=== PATIENT | female | born 1970 | race Caucasian/White ===

== ENCOUNTER 2019-01-09 16:11 | Observation (INO) | payer OTHER ==
[2019-01-09 16:53] LABS: Basophils # (A) 0.1 k/uL (0-0.2); Basophils % (A) 2 %; Eosinophils # (A) 0.3 k/uL (0-0.7); Eosinophils % (A) 5 %; HCT 42.2 % (34.0-46.0); Lymphocytes # (A) 1.5 k/uL (1.0-4.8); Lymphocytes % (A) 27 %; MCH 32.4 pg (25.0-35.0); MCHC 35.6 g/dL (31.0-37.0); MCV 90.9 fL (80.0-100.0); Mean Platelet Volume 6.4; Monocytes # (A) 0.2 k/uL (0-1.0); Monocytes % (A) 4 %; Neutrophils # (A) 3.3 k/uL (1.3-7.7); Neutrophils % (A) 60 %; Platelet Count 231 k/uL (150-450); RBC 4.64 m/uL (3.80-5.40); RDW 13.9 % (11.5-15.5); WBC 5.5 k/uL (3.8-10.6)
[2019-01-09 17:03] LABS: Partial Thromboplastin Time 26.1 sec (22.0-30.0)
[2019-01-09 17:04] LABS: ALT 38 U/L (9-52); AST 24 U/L (14-36); Albumin 4.5 g/dL (3.5-5.0); Alkaline Phosphatase 59 U/L (38-126); Anion Gap 8 mmol/L; Blood Urea Nitrogen 12 mg/dL (7-17); Calcium 9.3 mg/dL (8.4-10.2); Carbon Dioxide 29 mmol/L (22-30); Chloride 103 mmol/L (98-107); Glucose 128 mg/dL (74-99); Magnesium 1.8 mg/dL (1.6-2.3); Potassium 4.1 mmol/L (3.5-5.1); Sodium 140 mmol/L (137-145); Total Bilirubin 0.9 mg/dL (0.2-1.3); Total Protein 7.6 g/dL (6.3-8.2)
[2019-01-09 17:09] LABS: Creatine Kinase 58 U/L (30-135)
--- NOTE | 2019-01-09 17:12 | ED ---
General Adult HPI - General Chief complaint: Chest Pain Stated complaint: Chest Pain Time Seen by Provider: 01/09/19 16:52 Source: patient Mode of arrival: ambulatory Limitations: no limitations - History of Present Illness Initial comments: Dictation was produced using [employer] dictation software. please excuse any grammatical, word or spelling errors. Chief Complaint: 48-year-old female presents with multiple complaints including chest pain, elevated blood pressure History of Present Illness: Patient is a 48-year-old female presents with multiple complaints. She states that her symptoms began 5 days ago. She states that she noted her blood pressure was slightly higher than usual. States that ever since that she hasn't felt quite normal however she wasn't able to give me detailed symptoms. Symptoms persisted until this morning when she was in the kitchen she felt as though she had an episode of mild chest tightness with radiation to the back. States that she was slightly diaphoretic. Patient has history of achalasia for which she gets multiple esophageal dilatations on a regular basis. She denies any difficulties with swallowing. Patient does take lisinopril for her blood pressure. She called her primary care doctor but her blood pressure to take an extra dose. Denies any cough. No dyspnea denies any neuro deficits. The ROS documented in this emergency department record has been reviewed and confirmed by me. Those systems with pertinent positive or negative responses have been documented in the HPI. All other systems are other negative and/or noncontributory. PHYSICAL EXAM: General Impression: Alert and oriented x3, not in acute distress HEENT: Normocephalic atraumatic, extra-ocular movements intact, pupils equal and reactive to light bilaterally, mucous membranes moist. Cardiovascular: Heart regular rate and rhythm, S1&S2 audible, no murmurs, rubs or gallops Chest: Lungs clear to auscultation bilaterally, no rhonchi, no wheeze, no rales Abdomen: Bowel sounds present, abdomen soft, non-tender, non-distended, no organomegaly Musculoskeletal: Pulses present and equal in all extremities, no peripheral edema Motor: Power 5/5 bilaterally, no focal deficits noted Neurological: CN II-XII grossly intact, no focal motor or sensory deficits noted Skin: Intact with no visualized rashes Psych: Normal affect and mood ED course: 48-year-old female presents with multiple complaints. Vital signs upon arrival shows blood pressure 170/125, rest of vital signs within acceptable limits.Laboratory evaluation obtained. CBC is unremarkable. Coag panel unremarkable. D-dimer is negative. Metabolic panel and cardiac enzymes are negative. Chest x-ray shows no acute processes. Patient's clinical presentation is consistent with atypical chest pain with typical features. There is also concern that patient's symptoms could be secondary to esophageal spasms given history of achalasia. Patient be admitted observation for scheduled troponins and cardiology and GI consultation. EKG interpretation: Ventricular rate 76, sinus rhythm, NC interval 120, care is 80, QTc 438. No NC prolongation, no QTC prolongation, no ST or T-wave changes noted. Overall, this EKG is unremarkable - Related Data Home Medications Medication Instructions Recorded Confirmed [id number] 1 tab PO Q4-6H PRN 01/09/19 01/09/19 [Excedrin] Lisinopril [Prinivil] 10 mg PO DAILY 01/09/19 01/09/19 Allergies Allergy/AdvReac Type Severity Reaction Status Date / Time No Known Allergies Allergy Verified 01/09/19 17:04 Review of Systems ROS Statement: Those systems with pertinent positive or pertinent negative responses have been documented in the HPI. ROS Other: All systems not noted in ROS Statement are negative. Past Medical History Past Medical History: Hypertension History of Any Multi-Drug Resistant Organisms: MRSA Date of last positivie culture/infection: 2016 MDRO Source:: [place] Past Surgical History: Hernia Repair Past Psychological History: Depression Smoking Status: Never smoker Past Alcohol Use History: Occasional Past Drug Use History: None Reported General Exam Limitations: no limitations Course Vital Signs 01/09/19 01/09/19 16:22 18:56 Temperature 97.8 F Pulse Rate 81 69 Respiratory 16 19 Rate Blood Pressure 170/125 130/87 O2 Sat by Pulse 100 100 Oximetry Medical Decision Making - Lab Data Result diagrams: 01/09/19 16:41 01/09/19 16:41 Lab Results 01/09/19 01/09/19 01/09/19 Range/Units 16:41 16:41 16:41 WBC 5.5 (3.8-10.6) k/uL RBC 4.64 (3.80-5.40) m/uL Hgb 15.0 (11.4-16.0) gm/dL Hct 42.2 (34.0-46.0) % MCV 90.9 (80.0-100.0) fL MCH 32.4 (25.0-35.0) pg MCHC 35.6 (31.0-37.0) g/dL RDW 13.9 (11.5-15.5) % Plt Count 231 (150-450) k/uL Neutrophils % 60 % Lymphocytes % 27 % Monocytes % 4 % Eosinophils % 5 % Basophils % 2 % Neutrophils # 3.3 (1.3-7.7) k/uL Lymphocytes # 1.5 (1.0-4.8) k/uL Monocytes # 0.2 (0-1.0) k/uL Eosinophils # 0.3 (0-0.7) k/uL Basophils # 0.1 (0-0.2) k/uL PT (9.0-12.0) sec INR (<1.2) APTT (22.0-30.0) sec D-Dimer (<0.60) mg/L FEU Sodium 140 (137-145) mmol/L Potassium 4.1 (3.5-5.1) mmol/L Chloride 103 (98-107) mmol/L Carbon Dioxide 29 (22-30) mmol/L Anion Gap 8 mmol/L BUN 12 (7-17) mg/dL Creatinine 0.69 (0.52-1.04) mg/dL Est GFR (CKD-EPI)AfAm >90 (>60 ml/min/1.73 sqM) Est GFR (CKD-EPI)NonAf >90 (>60 ml/min/1.73 sqM) Glucose 128 H (74-99) mg/dL Calcium 9.3 (8.4-10.2) mg/dL Magnesium 1.8 (1.6-2.3) mg/dL Total Bilirubin 0.9 (0.2-1.3) mg/dL AST 24 (14-36) U/L ALT 38 (9-52) U/L Alkaline Phosphatase 59 (38-126) U/L Total Creatine Kinase 58 (30-135) U/L CK-MB (CK-2) 1.4 (0.0-2.4) ng/mL CK-MB (CK-2) Rel Index 2.4 Troponin I <0.012 (0.000-0.034) ng/mL NT-Pro-B Natriuret Pep pg/mL Total Protein 7.6 (6.3-8.2) g/dL Albumin 4.5 (3.5-5.0) g/dL 01/09/19 01/09/19 01/09/19 Range/Units 16:41 16:41 16:41 WBC (3.8-10.6) k/uL RBC (3.80-5.40) m/uL Hgb (11.4-16.0) gm/dL Hct (34.0-46.0) % MCV (80.0-100.0) fL MCH (25.0-35.0) pg MCHC (31.0-37.0) g/dL RDW (11.5-15.5) % Plt Count (150-450) k/uL Neutrophils % % Lymphocytes % % Monocytes % % Eosinophils % % Basophils % % Neutrophils # (1.3-7.7) k/uL Lymphocytes # (1.0-4.8) k/uL Monocytes # (0-1.0) k/uL Eosinophils # (0-0.7) k/uL Basophils # (0-0.2) k/uL PT 11.0 11.0 (9.0-12.0) sec INR 1.0 1.0 (<1.2) APTT 26.1 26.6 (22.0-30.0) sec D-Dimer 0.34 (<0.60) mg/L FEU Sodium (137-145) mmol/L Potassium (3.5-5.1) mmol/L Chloride (98-107) mmol/L Carbon Dioxide (22-30) mmol/L Anion Gap mmol/L BUN (7-17) mg/dL Creatinine (0.52-1.04) mg/dL Est GFR (CKD-EPI)AfAm (>60 ml/min/1.73 sqM) Est GFR (CKD-EPI)NonAf (>60 ml/min/1.73 sqM) Glucose (74-99) mg/dL Calcium (8.4-10.2) mg/dL Magnesium (1.6-2.3) mg/dL Total Bilirubin (0.2-1.3) mg/dL AST (14-36) U/L ALT (9-52) U/L Alkaline Phosphatase (38-126) U/L Total Creatine Kinase (30-135) U/L CK-MB (CK-2) (0.0-2.4) ng/mL CK-MB (CK-2) Rel Index Troponin I (0.000-0.034) ng/mL NT-Pro-B Natriuret Pep 80 pg/mL Total Protein (6.3-8.2) g/dL Albumin (3.5-5.0) g/dL Disposition Clinical Impression: Chest pain Disposition: ADMITTED IP TO THIS HOSP Condition: Fair Referrals: Hank Lemus MD [Primary Care Provider] - 1-2 days Decision Time: 19:42
[2019-01-09 17:22] LABS: Creatine Kinase MB 1.4 ng/mL (0.0-2.4); Troponin I <0.012 ng/mL (0.000-0.034)
[2019-01-09 17:32] LABS: D-Dimer 0.34 mg/L FEU (<0.60); Partial Thromboplastin Time 26.6 sec (22.0-30.0)
--- NOTE | 2019-01-09 17:39 | XR ---
EXAMINATION TYPE: XR chest 2V DATE OF EXAM: 01/09/2019 COMPARISON: NONE HISTORY: Chest pain TECHNIQUE: Frontal and lateral views of the chest are obtained. FINDINGS: Heart and mediastinum are normal. Lungs are clear. Diaphragm is normal. Bony thorax appear s normal. IMPRESSION: Normal chest.
[2019-01-09] MEDS ORDERED: LABETALOL SYRINGE 5 MG/ML IVP STA (18:38)
[2019-01-09] MEDS ORDERED: ASPIRIN 81 MG PO STA (19:43)
[2019-01-09] MEDS ORDERED: NITROGLYCERIN SL TABS 0.4 MG TAB SUBLINGUAL PRN (19:43)
[2019-01-09 23:47] LABS: Creatine Kinase 47 U/L (30-135)
[2019-01-09 23:59] LABS: Creatine Kinase MB 1.2 ng/mL (0.0-2.4); Troponin I <0.012 ng/mL (0.000-0.034)
[2019-01-10 05:38] LABS: Cholesterol 151 mg/dL (<200); HDL Cholesterol 79 mg/dL (40-60); LDL Cholesterol,Calculated 54 mg/dL (0-99); Triglycerides 90 mg/dL (<150)
[2019-01-10 05:54] LABS: Creatine Kinase 41 U/L (30-135)
[2019-01-10 06:07] LABS: Troponin I <0.012 ng/mL (0.000-0.034)
[2019-01-10] MEDS ORDERED: ASPIRIN 325 MG TAB PO SCH (09:00)
[2019-01-10] MEDS ORDERED: LISINOPRIL 10 MG TAB PO SCH (09:45)
[2019-01-10 10:49] VITALS: BMI 19.1
--- NOTE | 2019-01-10 11:04 | P.CONS ---
History of Present Illness - Reason for Consult Consult date: 01/10/19 Chest pain rule out esophageal spasm Requesting physician: Pranav E Sheet - Chief Complaint Chest pain - History of Present Illness 49-year-old female patient of Dr. Mendoza with a past medical history of esophageal stricture disease that dates back 10 years ago with previous upper endoscopies dilations; last EGD dilation approximately 5 years ago, hypertension , depression admitted with upper chest pain possible esophageal spasms with elevated blood pressures 170/125. Consultation requested for possible esophageal spasm. Patient states in a daily basis she has issues with solid foods being stuck but somehow clears and without emesis. No weight loss. Denies hematemesis hematochezia melena. Nitroglycerin worsened her chest discomfort. She is scheduled for stress test echocardiogram today. No PPI therapy prior to admission. Denies dyspepsia or reflux indigestion. White count 5.5. Hemoglobin 15. INR 1.0. D-dimer is 0.34. Troponin 3 less than 0.012. Chest x-ray normal. Review of Systems Constitutional: Denies fever, chills, sweats, weight gain, or loss. HEENT: Negative for migraines, blurred vision or loss, earaches, drainage, tinnitus, oral mucosal lesions, dysphagia, or odynophagia. CARDIAC: Admitted with chest pain denies pain, arrhythmias, or palpitation. RESPIRATORY: Negative for shortness of breath, hemoptysis, cough, or sputum production. GI: See HPI for pertinent findings. : Negative for hematuria, urgency, frequency, polyuria, or dysuria. GYNc: Denies possibility of . Negative vaginal discharge. MUSCULOSKELETAL: Negative for muscle aches, swelling, arthritis, and arthralgias. NEUROLOGIC: Negative for stroke or TIA. ENDOCRINE: Negative for thyroid problems. SKIN: Negative for rash or itching. PSYCHIATRIC: Negative history for depression and anxiety Past Medical History Past Medical History: Hypertension History of Any Multi-Drug Resistant Organisms: MRSA Year Discovered:: 2017 MDRO Source:: [place] Past Surgical History: Hernia Repair Past Psychological History: Depression Smoking Status: Never smoker Past Alcohol Use History: Occasional Past Drug Use History: None Reported - Past Family History Father Family Medical History: AFIB Mother Family Medical History: AFIB Medications and Allergies Home Medications Medication Instructions Recorded Confirmed Type Lvrqook-Uyep-Zpvq [id number] 1 tab PO Q4-6H PRN 01/09/19 01/09/19 History [Excedrin] Lisinopril [Prinivil] 10 mg PO DAILY 01/09/19 01/09/19 History Allergies Allergy/AdvReac Type Severity Reaction Status Date / Time No Known Allergies Allergy Verified 01/09/19 17:04 Physical Exam Vitals: Vital Signs Temp Pulse Resp BP Pulse Ox 01/10/19 06:07 125/74 01/10/19 02:00 17 01/09/19 22:24 66 18 126/65 99 01/09/19 21:42 75 18 130/72 99 01/09/19 18:56 69 19 130/87 100 01/09/19 16:22 97.8 F 81 16 170/125 100 Intake and Output 01/09/19 01/10/19 01/10/19 22:59 06:59 14:59 Other: Weight 52.163 kg General appearance: The patient is alert, oriented, in no acute distress. HET: Head is normocephalic and atraumatic. Pupils are equal and reactive. Oropharynx is clear without lesions. Neck: Supple without lymphadenopathy. Trachea midline. Heart: S1 S2. Regular rate and rhythm. Lungs: No crackles or wheezes are heard. Abdomen: Soft, nontender, nondistended with bowel sounds. No peritoneal signs. No palpable organomegaly or masses. Extremities: Normal skin color and turgor. No cyanosis, rash, ulceration, clubbing, or edema. Radial and pedal pulses are 2/4 bilaterally. Neurological: No focal deficits. Strength and sensation are grossly intact. Results CBC & Chem 7: 01/09/19 16:41 01/09/19 16:41 Labs: Abnormal Lab Results - Last 24 Hours (Table) 01/09/19 01/10/19 Range/Units 16:41 04:54 Glucose 128 H (74-99) mg/dL HDL Cholesterol 79 H (40-60) mg/dL Chest x-ray: report reviewed (Dr. Lazo) Assessment and Plan (1) Chest pain Narrative/Plan: 49-year-old female admitted with upper chest pain not relieved with nitroglycerin with underlying history of hypertension and esophageal stricture disease requiring previous dilations last EGD approximately 5 years ago. Possible GERD esophageal spasms underlying cardiac pathology cannot be excluded. Current Visit: Yes Status: Acute Code(s): R07.9 - CHEST PAIN, UNSPECIFIED SNOMED Code(s): 63769022 (2) Hypertension Current Visit: Yes Status: Acute Code(s): I10 - ESSENTIAL (PRIMARY) HYPERTENSION SNOMED Code(s): 97980012 (3) History of esophageal dilatation Current Visit: Yes Status: Acute Code(s): Z98.890 - OTHER SPECIFIED POSTPROCEDURAL STATES SNOMED Code(s): 845535769 Plan: 1. Protonix 40 mg daily. Cardiac echo stress test requested by cardiology. EGD was recommended timing will be based on clinical course. This can be pursued inpatient versus outpatient later this week if she obtains cardiac clearance later today. We'll review previous GI office/endoscopic records. We' ll follow closely with you. Thank you for this kind referral and the opportunity to participate in the care of your patient. This consultation was discussed with Dr. Lazo. The impression and plan of care have been directed as dictated.
[2019-01-10] MEDS ORDERED: LISINOPRIL 10 MG TAB PO STA (11:28)
--- NOTE | 2019-01-10 11:36 | P.CRDCN ---
History of Present Illness History of present illness: This is a pleasant 49-year-old female past medical history significant for hypertension, dysphagia and depression. She denies history of coronary artery disease, dyslipidemia or diabetes mellitus. She states both her parents had atrial fibrillation but no premature coronary artery disease. The patient's is here in consultation for symptoms of chest discomfort. She states she has been feeling generally unwell over the previous week or so she was diagnosed with a viral illness recently and was started on antibiotics. She checked her blood pressure at home on Thursday she states it was extremely high. She is very compliant with her lisinopril. Then yesterday she started feeling a very heavy pressure sensation in the midsternal region with radiation through to the back. There is no radiation to the arm, neck or jaw. She felt as thought the time she was mildly diaphoretic. There was no associated shortness of breath, dizziness, palpitations, nausea or vomiting. The discomfort was brief and resolved on its own. No specific aggravating or alleviating factors. She is seen and examined resting comfortably sitting up on the stretcher with her at the bedside. At the time of my exam she continues to have chest discomfort when she takes in a deep breath but otherwise no anginal symptoms. EKG reveals sinus mechanism with nonspecific ST abnormalities noted inferio- laterally. Chest x-ray negative for an acute cardiopulmonary process. Laboratory data reviewed, WBC 5.5, hemoglobin 15, platelets 231, d-dimer 0.34, sodium 140, potassium 4.1, creatinine 0.69, magnesium 1.8, cardiac enzymes negative 3, LDL 54 and HDL 79. Current cardiac medications include lisinopril 10 mg daily. At the time of my exam: CONSTITUTIONAL: Denies fever. Denies chills. EYES: Denies blurred vision. Denies vision changes. Denies eye pain. EARS, NOSE, MOUTH & THROAT: Denies headache. Denies sore throat. Denies ear pain. CARDIOVASCULAR: Complains of pleuritic chest pain. Denies shortness of breath. Denies orthopnea. Denies PND. Denies palpitations. RESPIRATORY: Denies cough. GASTROINTESTINAL: Denies abdominal pain. Denies diarrhea. Denies constipation. Denies nausea. Denies vomiting. MUSCULOSKELETAL: Denies myalgias. INTEGUMENTARY: Denies pruitis. Denies rash. NEUROLOGIC: Denies numbness. Denies tingling. Denies weakness. PSYCHIATRIC: Denies anxiety. Denies depression. ENDOCRINE: Denies fatigue. Denies weight change. Denies polydipsia. Denies polyurina. GENITOURINARY: Denies burning, hematuria or urgency with micturation. HEMATOLOGIC: Denies history of anemia. Denies bleeding. Blood pressure 153/88 heart rate 63 afebrile maintaining oxygen saturation on room air GENERAL: This is a 49-year-old female in no apparent distress at the time of my examination. HEENT: Head is atraumatic, normocephalic. Pupils are equal, round. Sclerae anicteric. Conjunctivae are clear. Mucous membranes of the mouth are moist. Neck is supple. There is no jugular venous distention. No carotid bruit is heard. LUNGS: Clear to auscultation no wheezes, rales or rhonchi. No chest wall tenderness is noted on palpation or with deep breathing. HEART: Regular rate and rhythm without murmurs, rubs or gallops. S1 and S2 heard. ABDOMEN: Soft, nontender. Bowel sounds are heard. No organomegaly noted. EXTREMITIES: No evidence of peripheral edema and no calf tenderness noted. VASCULAR: Radial and dorsalis pedis pulses palpated, no evidence of clubbing. NEUROLOGIC: Patient is awake, alert and oriented x3. ASSESSMENT Chest pain, atypical. An acute coronary event has been ruled out. Baseline EKG abnormalities of unknown etiology. Hypertension, uncontrolled History of esophageal stricture status post dilatation 5+ years ago Gastroesophageal reflux disease PLAN An acute coronary event has been ruled out. Baseline EKG abnormalities noted. Obtain 2-D echocardiogram and Doppler study to assess cardiac structure and function. Increase lisinopril to 20 mg daily. Perform stress echocardiogram to assess her stress induced cardiac ischemia. Stress test is abnormal we'll consider coronary angiography. If normal she is stable from a cardiac perspective. Ongoing management per GI for possible endoscopy. Thank you kindly for this consultation. Nurse Practitioner note has been reviewed, I agree with a documented findings and plan of care. Patient was seen and examined. Past Medical History Past Medical History: Hypertension Additional Past Medical History / Comment(s): Achalasia/dysphagia-watches what she eats and chews her pills. History of Any Multi-Drug Resistant Organisms: MRSA Date of last positivie culture/infection: 2016 MDRO Source:: [place] Past Surgical History: Hernia Repair Additional Past Surgical History / Comment(s): EGD with dilations, bilateral inguinal hernia repairs, colonoscopy. Past Anesthesia/Blood Transfusion Reactions: No Reported Reaction Additional Past Anesthesia/Blood Transfusion Reaction / Comment(s): Pt has clausterphobia. Past Psychological History: Depression Smoking Status: Never smoker Past Alcohol Use History: Occasional Past Drug Use History: None Reported - Past Family History Father Family Medical History: AFIB Mother Family Medical History: AFIB Medications and Allergies Home Medications Medication Instructions Recorded Confirmed Type Xzkhxck-Xjsa-Kztg [id number] 1 tab PO Q4-6H PRN 01/09/19 01/09/19 History [Excedrin] Lisinopril [Prinivil] 10 mg PO DAILY 01/09/19 01/09/19 History Allergies Allergy/AdvReac Type Severity Reaction Status Date / Time No Known Allergies Allergy Verified 01/09/19 17:04 Physical Exam Vitals: Vital Signs Temp Pulse Pulse Resp BP BP Pulse Ox 01/10/19 09:00 97.8 F 63 18 153/88 99 01/10/19 08:43 97.6 F 77 18 142/76 99 01/10/19 06:07 125/74 01/10/19 02:00 17 01/09/19 22:24 66 18 126/65 99 01/09/19 21:42 75 18 130/72 99 01/09/19 18:56 69 19 130/87 100 01/09/19 16:22 97.8 F 81 16 170/125 100 Intake and Output 01/09/19 01/10/19 01/10/19 22:59 06:59 14:59 Other: Weight 52.163 kg Results 01/09/19 16:41 01/09/19 16:41 Cardiac Enzymes 01/09/19 01/09/19 01/09/19 Range/Units 16:41 16:41 23:16 AST 24 (14-36) U/L CK-MB (CK-2) 1.4 1.2 (0.0-2.4) ng/mL Troponin I <0.012 <0.012 (0.000-0.034) ng/mL 01/10/19 Range/Units 04:54 AST (14-36) U/L CK-MB (CK-2) 1.0 (0.0-2.4) ng/mL Troponin I <0.012 (0.000-0.034) ng/mL Coagulation 01/09/19 01/09/19 Range/Units 16:41 16:41 PT 11.0 11.0 (9.0-12.0) sec APTT 26.1 26.6 (22.0-30.0) sec Lipids 01/10/19 Range/Units 04:54 Triglycerides 90 (<150) mg/dL Cholesterol 151 (<200) mg/dL HDL Cholesterol 79 H (40-60) mg/dL CBC 01/09/19 Range/Units 16:41 WBC 5.5 (3.8-10.6) k/uL RBC 4.64 (3.80-5.40) m/uL Hgb 15.0 (11.4-16.0) gm/dL Hct 42.2 (34.0-46.0) % Plt Count 231 (150-450) k/uL Comprehensive Metabolic Panel 01/09/19 Range/Units 16:41 Sodium 140 (137-145) mmol/L Potassium 4.1 (3.5-5.1) mmol/L Chloride 103 (98-107) mmol/L Carbon Dioxide 29 (22-30) mmol/L BUN 12 (7-17) mg/dL Creatinine 0.69 (0.52-1.04) mg/dL Glucose 128 H (74-99) mg/dL Calcium 9.3 (8.4-10.2) mg/dL AST 24 (14-36) U/L ALT 38 (9-52) U/L Alkaline Phosphatase 59 (38-126) U/L Total Protein 7.6 (6.3-8.2) g/dL Albumin 4.5 (3.5-5.0) g/dL Current Medications Generic Name Dose Route Start Last Admin Trade Name Freq PRN Reason Stop Dose Admin Aspirin 325 mg 01/10/19 09:00 Aspirin PO DAILY SELWYN Lisinopril 10 mg 01/10/19 09:45 Zestril PO DAILY SELWYN Lisinopril 20 mg 01/11/19 09:00 Zestril PO DAILY SELWYN Lisinopril 10 mg 01/10/19 11:25 Zestril PO 01/10/19 11:26 ONCE STA Nitroglycerin 0.4 mg 01/09/19 19:43 01/09/19 22:23 Nitrostat SUBLINGUAL 0.4 mg Q5M PRN Administration Chest Pain Intake and Output 01/09/19 01/10/19 01/10/19 22:59 06:59 14:59 Other: Weight 52.163 kg 01/09/19 16:41 01/09/19 16:41
--- NOTE | 2019-01-10 13:45 | ECHOF ---
Referral Reason:cp MEASUREMENTS -------- HEIGHT: 165.1 cm WEIGHT: 52.2 kg BP: IVSd: 1.1 cm (0.6 - 1.1) LVIDd: 3.8 cm (3.9 - 5.3) LVPWd: 0.8 cm (0.6 - 1.1) IVSs: 1.2 cm LVIDs: 2.4 cm LVPWs: 1.0 cm Ao Diam: 3.1 cm (2.0 - 3.7) AV Cusp: 1.5 cm (1.5 - 2.6) LA Diam: 2.8 cm (2.7 - 3.8) MV EXCURSION: 17.007 mm (> 18.000) MV EF SLOPE: 141 mm/s (70 - 150) EPSS: 1.8 cm MV E Woody: 0.65 m/s MV DecT: 348 ms MV A Woody: 0.52 m/s MV E/A Ratio: 1.25 RAP: 5.00 mmHg RVSP: 28.15 mmHg FINDINGS -------- Sinus rhythm. This was a technically good study. The left ventricular size is normal. Left ventricular wall thickness is normal. Overall left vent ricular systolic function is normal with, an EF between 55 - 60 %. The right ventricle is normal in size. The left atrium is normal in size. The right atrium is normal in size. The aortic valve is trileaflet, and appears structurally normal. No aortic stenosis or regurgitation. The mitral valve leaflets are mildly thickened. Mild mitral regurgitation is present. Mild tricuspid regurgitation present. The right ventricular systolic pressure, as measured by Doppl er, is 28.15mmHg. Pulmonic valve appears structurally normal. The aortic root size is normal. Normal inferior vena cava with normal inspiratory collapse consistent with estimated right atrial pre ssure of 5 mmHg. The pericardium is normal. CONCLUSIONS -------- 1. Sinus rhythm. 2. This was a technically good study. 3. The left ventricular size is normal. 4. Left ventricular wall thickness is normal. 5. Overall left ventricular systolic function is normal with, an EF between 55 - 60 %. 6. The right ventricle is normal in size. 7. The left atrium is normal in size. 8. The right atrium is normal in size. 9. The aortic valve is trileaflet, and appears structurally normal. No aortic stenosis or regurgitati on. 10. The mitral valve leaflets are mildly thickened. 11. Mild mitral regurgitation is present. 12. Mild tricuspid regurgitation present. 13. The right ventricular systolic pressure, as measured by Doppler, is 28.15mmHg. 14. Pulmonic valve appears structurally normal. 15. The aortic root size is normal. 16. Normal inferior vena cava with normal inspiratory collapse consistent with estimated right atrial pressure of 5 mmHg. 17. The pericardium is normal. CLAY ARTISAN: Tara Amaral RDCS
--- NOTE | 2019-01-10 16:35 | ECHOS ---
STRESS ECHOCARDIOGRAM DATE OF SERVICE: 01/10/2019 INDICATION: Chest pain. MEDICATIONS: Lisinopril. BASELINE HEART RATE: 67 BASELINE BLOOD PRESSURE: 163/103 MAXIMUM HEART RATE: 156 MAXIMUM BLOOD PRESSURE: 207/99 85% MPHR: 147 100% MPHR: 173 METS: 9.9 MAXIMUM STAGE REACHED: 3 TOTAL EXERCISE TIME: 8:15 CLINICAL INFORMATION: STRESS DATA: Pre-testing physical examination showed a heart rate of 67, pressure 163/103 mmHg. Baseline EKG showed sinus mechanism. The patient exercised on the treadmill using Mehdi protocol for a total of 8 minutes and 15 seconds and achieved 9.9 METS with max heart of 156, which is about 90% of maximum predicted heart rate. Maximum blood pressure was 207/99 mmHg. Clinically the patient did not have any symptoms of chest pain or chest discomfort during the testing or on recovery. The EKG showed about [address]-segment changes on recovery. ECHOCARDIOGRAM IMAGES: Echocardiogram images from parasternal long axis view, parasternal short axis view, apical 4-chamber and apical 2-chamber views were obtained as the baseline images, at the peak of the heart rate as well as on recovery. The echocardiogram images showed good augmentation in the left ventricular systolic function without any evidence of wall motion abnormalities concerning for ischemia. CONCLUSION: 1. Excellent exercise tolerance. 2. Mild EKG changes in response to exercise. 3. Normal echocardiogram in response to exercise. MMODL / IJN: [id number] /
[2019-01-10] MEDS ORDERED: PANTOPRAZOLE 40 MG TABLET PO STA (16:52)
[2019-01-10 20:01] VITALS: BP 131/85; PULSE 67; RESP 16; TEMP 98.3
--- NOTE | 2019-01-10 20:12 | US ---
EXAMINATION TYPE: US venous doppler duplex LE DATE OF EXAM: 01/10/2019 7:56 PM COMPARISON: NONE CLINICAL HISTORY: Rule out DVT. Chest pain and leg cramps. SIDE PERFORMED: Bilateral TECHNIQUE: The lower extremity deep venous system is examined utilizing real time linear array sonog angie with graded compression, doppler sonography and color-flow sonography. VESSELS IMAGED: External Iliac Vein (EIV) Common Femoral Vein Deep Femoral Vein Greater Saphenous Vein * Femoral Vein Popliteal Vein Small Saphenous Vein * Proximal Calf Veins (* superficial vessels) Right Leg: Negative for DVT Left Leg: Negative for DVT IMPRESSION: No evidence of deep venous thrombosis in both legs.
[2019-01-11] MEDS ORDERED: LISINOPRIL 20 MG TAB PO SCH (09:00)
--- NOTE | 2019-01-14 13:36 | P.DS ---
Providers Date of admission: 01/09/19 19:43 Attending physician: Pranav Huff MD Consults: 01/09/19 19:43 Consult Physician Routine Consulting Provider: Pratik Mendoza Consult Reason/Comments: chest pain r/o esophageal spasm Do you want consulting provider notified?: Yes Consult Physician Urgent Consulting Provider: Qing Singh Consult Reason/Comments: chest pain Do you want consulting provider notified?: Yes Primary care physician: [facility] Course: date of service: 01/10/2019 combined H&P and DC summary Dx chest pain , mostly related to viral pleurisy hypertension h/o dysphagia and achalasia hospital course pt is a pleasant 49 yo F who presents with central chest discomfort , worsened with deep breathing and cough. has h/o recent upper resp infection , pt was evaluated by assembler golf wood head who recommended stress test. she had normal stress echo, and cardiology team cleared pt for discharge. pt was evaluated by GI team and recommended EGD for her , but pt preferred to do it as outpt . the GI office will contact pt for exat appointment and pt agrees with this plan. work up was unraveling for other abnormality. her labs were within normal limits including normal DDimer besides the suspicion for PE was low , and work up would have more risk than benefits. doppler of lower ext is negative also for DVT, pt was treated symptomatically and she felt better and that she can go home pt was cleared by GI and cardiology team for discharge Pt was instructed about the problems and management plan and Pt verbalized understanding and acceptance Pt is found stable and can be discharged to the community but needs follow up as outpt. pt agrees with appointments and their timing and stated he will follow up Discharge exam Gen.: Patient alert awake and oriented X 3, NOT IN DISTRESS CVS: s1-s2, RRR, no murmur CHEST:bilateral CTA, no wheezing or crepitation Abdomen: Soft, no tenderness, no distention, positive bowel sounds Extremities: No leg edema or induration time spent : more than 35 min Patient Condition at Discharge: Fair Plan - Discharge Summary Discharge Rx Participant: No New Discharge Prescriptions: New Lisinopril [Zestril] 20 mg PO DAILY tab Aspirin 325 mg PO DAILY #30 tab Continue Qyrmrsu-Eqvg-[id number] [Excedrin] 1 tab PO Q4-6H PRN PRN Reason: Pain Discontinued Lisinopril [Prinivil] 10 mg PO DAILY No Action Pantoprazole [Protonix] 40 mg PO DAILY Discharge Medication List Rmtxiji-Npfu-Cvso [id number] [Excedrin] 1 tab PO Q4-6H PRN 01/09/19 [History] Aspirin 325 mg PO DAILY #30 tab 01/10/19 [Rx] Lisinopril [Zestril] 20 mg PO DAILY tab 01/10/19 [Rx] Pantoprazole [Protonix] 40 mg PO DAILY 01/12/19 [History] Follow up Appointment(s)/Referral(s): Darrel Sun MD [STAFF PHYSICIAN] - 01/17/19 3:00 pm Hank Lemus MD [Primary Care Provider] - 1 Week (Please follow up with your primary care provider in one week.) Patient Instructions/Handouts: Chest Pain (DC) Activity/Diet/Wound Care/Special Instructions: SCRIPTS ARE IN PATIENT CHART - IF VENOUS DOPPLER IS NEGATIVE PATIENT CAN BE DISCHARGED. E[facility] at [facility] with Dr. Mendoza. Mary will contact you on or before Thursday regarding the time of the procedure on . Discharge Disposition: HOME SELF-CARE
== END 2019-01-10 22:00 | disposition home or self-care (01) ==
LOC: EC 16:11 → 1SOBS 19:43
PROVIDERS: ADMIT Internal Medicine; ATTEND Internal Medicine
DX: R07.89 Other chest pain (principal); R13.10 Dysphagia, unspecified; I10 Essential (primary) hypertension; R94.31 Abnormal electrocardiogram [ECG] [EKG]; K21.9 Gastro-esophageal reflux disease without esophagitis; F32.9 Major depressive disorder, single episode, unspecified; Z86.14 Personal history of Methicillin resistant Staphylococcus aureus infection; Z98.890 Other specified postprocedural states; Z79.899 Other long term (current) drug therapy; Z82.49 Family history of ischemic heart disease and other diseases of the circulatory system
CPT/HCPCS: 99285; 36415; 93005; 93306; 93351; 85379; 83880; 80061; 80053; 82550 ×2; 82553 ×2; 83735; 84484 ×2; 85025; 85610; 85730; 81025; 71046; 93970; G0378 ×2

== ENCOUNTER 2019-01-13 10:10 | Day surgery (SDC) | payer OTHER ==
[2019-01-12 08:40] VITALS: BMI 19.1
[~2019-01-13 10:10] MED LIST: LACTATED RINGERS 1,000 ML IV SCH
[2019-01-13 10:37] VITALS: TEMP 98
[2019-01-13] MEDS ORDERED: LIDOCAINE 1% 20 ML VIAL (10MG/ML) FOR IV START INTRADERMA ONE (10:50)
[2019-01-13] MEDS ORDERED: LIDOCAINE 1% INJ 10MG/ML (20 ML MDV) ONE (11:55)
[2019-01-13] MEDS ORDERED: PROPOFOL 10 MG/ML 20 ML VIAL IV ONE (11:55)
--- NOTE | 2019-01-13 12:37 | P.PCN ---
Date of Procedure: 01/13/19 Procedure(s) Performed: Procedure: Esophagogastroduodenoscopy and biopsy and esophageal dilation using the Microvasive azjupoh-lsb-mmkle balloon dilators size 12-15 mm. Preoperative diagnosis: Dysphagia and history of stricture that required dilation in the past. Postoperative diagnosis: 1. Benign appearing esophageal stricture dilated up to 15 mm. 2. Corrugations in the esophagus noted raising the possibility of eosinophilic esophagitis. 3. Biopsies obtained in the proximal esophagus after dilation. 4. No obvious abnormalities in stomach and duodenum. Preparation and sedation: Was provided by anesthesia. Brief clinical history: The patient is a 49-year-old female who is referred for this evaluation because of dysphagia over the last couple years. The patient was evaluated several years before that and had an esophageal stricture that required dilation and has done well until her symptoms restarted. Her symptoms are mostly for solid food. Procedure: With the patient on her left lateral decubitus position and after informed consent and adequate sedation, I passed a Olympus-GIF age 190 video upper endoscope through the cricopharyngeus down the esophagus. There was a benign short stricture at the level of the GE junction which was around 37 cm from the incisors. I did not pass the endoscope through, initially, but instead , I used the Microvasive berkhml-jqx-oinam balloon dilator size 12-15 mm to dilate the stricture. I centered the balloon at the level of the stricture and inflated it in a dteb-tgap-mfasqao from 12-15 mm. After accomplishing dilation I proceeded to advance the endoscope into the stomach. There was a sliding hiatal hernia. The stomach was insufflated with air and inspected in detail including the retroflex view in the cardia. No obvious abnormalities were seen. Pyloric channel, duodenal bulb, post bulbar area and descending duodenum appeared within normal limits. In the esophagus there was corrugations especially noted in the proximal esophagus I obtained biopsies before the endoscope was withdrawn to rule out eosinophilic esophagitis. The patient tolerated the procedure well and did not have any immediate complications. Plan: The patient was reassured. Would keep on clear liquid diet today. Further plans will be made based on her course.
[2019-01-13 12:47] VITALS: RESP 16
[2019-01-13 13:12] VITALS: PULSE 64
[2019-01-13 13:25] VITALS: BP 139/83
== END 2019-01-13 13:47 | disposition home or self-care (01) ==
LOC: ORWHC2ENDO 10:10
DX: K22.2 Esophageal obstruction (principal); K21.9 Gastro-esophageal reflux disease without esophagitis; I10 Essential (primary) hypertension; Z79.82 Long term (current) use of aspirin; Z79.899 Other long term (current) drug therapy
CPT/HCPCS: 81025; 88305; 43249; 43239; J2001; J2704; C1726

== ENCOUNTER → 2019-01-25 | Outpatient (CLI) | payer OTHER ==
[2019-01-25 15:35] LABS: HCT 42.9 % (34.0-46.0); HGB 14.5 gm/dL (11.4-16.0); MCH 31.6 pg (25.0-35.0); MCHC 33.7 g/dL (31.0-37.0); MCV 93.8 fL (80.0-100.0); Mean Platelet Volume 6.2; Platelet Count 278 k/uL (150-450); RBC 4.58 m/uL (3.80-5.40); RDW 13.7 % (11.5-15.5); WBC 6.6 k/uL (3.8-10.6)
[2019-01-25 16:01] LABS: Anion Gap 9 mmol/L; Blood Urea Nitrogen 10 mg/dL (7-17); Carbon Dioxide 28 mmol/L (22-30); Chloride 102 mmol/L (98-107); Potassium 4.3 mmol/L (3.5-5.1); Sodium 139 mmol/L (137-145)
== END | disposition home or self-care (01) ==
LOC: LABPAT 15:15
PROVIDERS: ATTEND Internal Medicine Interventional Cardiology
DX: Z01.812 Encounter for preprocedural laboratory examination (principal); R07.9 Chest pain, unspecified
CPT/HCPCS: 36415; 80051; 82565; 84520; 85027

== ENCOUNTER 2019-01-26 08:07 | Day surgery (SDC) | payer OTHER ==
[2019-01-25 09:08] VITALS: BMI 19.4
[~2019-01-26 08:07] MED LIST changes: +ALPRAZolam 0.25 MG TAB PO PRN; +ALPRAZolam 0.5 MG TAB PO PRN; +ASPIRIN 325 MG TAB PO STA; +ATORVASTATIN 80 MG TAB PO STA; -LACTATED RINGERS 1,000 ML IV SCH; +NITROGLYCERIN SL TABS 0.4 MG TAB SUBLINGUAL PRN; +SODIUM CHLORIDE 0.9% 1,000 ML in EMPTY BAG 1 BAG IV ONE
[2019-01-26] MEDS ORDERED: ALPRAZolam 0.25 MG TAB PO ONE ×2 (08:30→11:44)
[2019-01-26] MEDS ORDERED: VERAPAMIL 2.5 MG/ML 2 ML AMP ONE (13:17)
[2019-01-26] MEDS ORDERED: LIDOCAINE 1% INJ 10MG/ML (20 ML MDV) ONE (13:18)
[2019-01-26] MEDS ORDERED: fentaNYL (PF) 50 MCG/ML 2 ML AMP ONE (13:18)
[2019-01-26] MEDS ORDERED: IV FLUID CONTINUATION 900 ML IV ONE (13:19)
[2019-01-26] MEDS ORDERED: fentaNYL (PF) 50 MCG/ML 2 ML AMP IV ONE (13:36)
[2019-01-26] MEDS: MIDAZOLAM 2 MG/2 ML VIAL IV ONE ×2 (13:37→13:44)
[2019-01-26] MEDS ORDERED: LIDOCAINE 1% INJ 10MG/ML (20 ML MDV) SQ ONE (13:39)
[2019-01-26] MEDS ORDERED: HEPARIN SODIUM 1,000 UN/ML (10ML VL) ONE (13:40)
[2019-01-26] MEDS ORDERED: HEPARIN SODIUM 1,000 UN/ML (10ML VL) IV ONE (13:42)
[2019-01-26] MEDS: VERAPAMIL SYRINGE (5 MG/10 ML) INTRAARTER ONE ×3 (13:42→13:53)
[2019-01-26] MEDS ORDERED: HYDROmorphone 2 MG/ML 1 ML SYRINGE IV ONE (13:47)
[2019-01-26] MEDS ORDERED: IOPAMIDOL-370 150ML BTL INJ ONE (13:53)
[2019-01-26] MEDS ORDERED: RX INFO: IV CONTRAST WAS GIVEN 1 EACH MISC MISCELLANE PRN (13:59)
[2019-01-26] MEDS ORDERED: SODIUM CHLORIDE 0.9% 1,000 ML IV SCH (14:00)
--- NOTE | 2019-01-26 14:19 | CC ---
CARDIAC CATHETERIZATION REPORT DATE OF SERVICE: 01/26/2019 PERFORMING PHYSICIAN: Darrel Sun MD, Director Of Diversity And Inclusion. PROCEDURE PERFORMED: 1. Selective right and left coronary angiogram. 2. Left heart catheterization. INDICATION: This is a pleasant 49-year-old female patient with history of hypertension who continues to have chest discomfort in spite of maximized medical treatment. There was a concern about severe underlying coronary artery disease and because of that, a heart catheterization was advised. APPROACH: Right radial artery. COMPLICATION: None. LEVEL OF SEDATION: Moderate with sedation length of 17 minutes. PROCEDURE DESCRIPTION: After obtaining an informed consent, the patient was brought to the cardiac geophysical laboratory supervisor. The right radial artery was cannulated using micropuncture technique and a micropuncture wire passed easily, then I placed a 5-Algerian sheath in the right radial artery. After that, I gave the patient 2 mg of verapamil IA and 6000 units of heparin IV. After that, I did selective right and left coronary angiogram using JR4 and JL3.5 catheters. Left heart catheterization was performed using the JR4 catheter which crossed the aortic valve. Then I did pullback across the aortic valve. The procedure was completed without any complication. SELECTIVE CORONARY ANGIOGRAM: 1. The right coronary artery is a large caliber vessel and it is a dominant vessel and appeared to be angiographically normal. Distally bifurcates into PDA and PLV branches, both are angiographically normal. 2. The left main is angiographically normal. It bifurcates into left circumflex and left anterior descending artery. 3. The left circumflex is a large caliber vessel. It is a nondominant vessel. The proximal circumflex is normal. The mid circumflex is normal and gives rise into a first OM branch which bifurcates into 2 separate branches. Both appeared to be angiographically normal. The circumflex continued after that as a small-caliber vessel in the AV groove. 4. The LAD, the proximal LAD appeared to be normal and gives rise into a large diagonal branch which appeared to be normal. The mid LAD is tortuous, but appeared to be angiographically normal and the LAD distally appeared to be normal as well. HEMODYNAMICS: The left ventricular end-diastolic pressure was 8 mmHg and no significant gradient was seen across the aortic valve. CONCLUSION: 1. Normal coronary angiogram. 2. Normal left ventricular end-diastolic pressure. POSTPROCEDURE MANAGEMENT: 1. Blood pressure control. 2. Follow up with the patient. MMODL / IJN: [id number] /
--- NOTE | 2019-01-26 14:22 | LTR ---
DATE OF SERVICE: 01/26/2019 RE: Lidia Rand Dear Dr. Lemus: Ms. Lidia Rand underwent a heart catheterization today and that revealed normal coronaries. I want to thank you for allowing us to participate in her care and please do not hesitate to call if you have any question or concern. Sincerely, MD AUGUSTINA Lemus / MARCELLUSN: [id number] /
[2019-01-26] MEDS ORDERED: ASPIRIN-ACET-CAFF 250-250-65MG 1 EACH TAB PO PRN (14:35)
[2019-01-26 19:21] VITALS: BP 119/57; PULSE 71; RESP 15; TEMP 97.9
== END 2019-01-26 20:00 | disposition home or self-care (01) ==
LOC: CATHCVL 08:07 → 1SOBS 14:05 → CATHCVL 20:00
PROVIDERS: ATTEND Internal Medicine Interventional Cardiology
DX: I20.0 Unstable angina (principal); I77.1 Stricture of artery; Z82.49 Family history of ischemic heart disease and other diseases of the circulatory system; Z79.82 Long term (current) use of aspirin; Z79.899 Other long term (current) drug therapy
CPT/HCPCS: 93458; 81025; C1769; C1894; J2250; J1170; J2001; J3010; J1644; Q9967

== ENCOUNTER 2019-01-31 12:05 | Inpatient (IN) | payer OTHER ==
[2019-01-31] MEDS ORDERED: MORPHINE SULFATE 4 MG/ML SYRINGE IV STA ×3 (14:22→16:45)
[2019-01-31 14:50] LABS: Basophils % (A) 1 %; Eosinophils # (A) 0.3 k/uL (0-0.7); Eosinophils % (A) 7 %; HCT 43.1 % (34.0-46.0); HGB 14.9 gm/dL (11.4-16.0); Lymphocytes # (A) 1.1 k/uL (1.0-4.8); Lymphocytes % (A) 27 %; MCH 31.2 pg (25.0-35.0); MCHC 34.5 g/dL (31.0-37.0); MCV 90.4 fL (80.0-100.0); Mean Platelet Volume 6.3; Monocytes # (A) 0.2 k/uL (0-1.0); Monocytes % (A) 5 %; Neutrophils # (A) 2.4 k/uL (1.3-7.7); Neutrophils % (A) 60 %; Platelet Count 224 k/uL (150-450); RBC 4.76 m/uL (3.80-5.40); RDW 13.4 % (11.5-15.5); WBC 4.1 k/uL (3.8-10.6)
[2019-01-31 15:00] LABS: Prothrombin Time 10.4 sec (9.0-12.0)
--- NOTE | 2019-01-31 15:04 | ED ---
General Adult HPI <Sb Law - Last Filed: 01/31/19 16:40> - General Source: patient, RN notes reviewed, old records reviewed Mode of arrival: ambulatory Limitations: no limitations <Ruperto Winston - Last Filed: 01/31/19 22:56> - General Chief complaint: Extremity Injury, Upper Stated complaint: RT ARM PAIN AND SWELLING POST CATH Time Seen by Provider: 01/31/19 14:08 - History of Present Illness Initial comments: 49-year-old female patient with past history of hypertension, esophageal dilation presents to ED with approximately 24 hours of pain in her right upper extremity, most pain is located at her distal radial artery. Patient reports that she had a heart catheterization on Thursday01/26/[address] Haines. Within the last 24 hours patient began developing a substantial amount of pain at the site of the heart catheterization on her right radial artery. Patient now complains of pain radiating up her forearm and upper arm. Patient denies any paresthesias, loss of sensation. Patient denies any other complaints today. Patient denies chest pain, shortness of breath, abdominal pain, nausea vomiting diarrhea. Systemic: Pt denies fatigue, fever/chills, rash. Pt denies weakness, night sweats, weight loss. Neuro: Pt denies headache, visual disturbances, syncope or pre-syncope. HEENT: Pt denies ocular discharge or irritation, otalgia, rhinorrhea, pharyngitis or notable lymphadenopathy. Cardiopulmonary: Pt denies chest pain, SOB, heart palpitations, dyspnea on exertion. Abdominal/GI: Pt denies abdominal pain, n/v/d. : Pt denies dysuria, burning w/ urination, frequency/urgency. Denies new onset urinary or bowel incontinence. MSK: Pt denies loss of strength or function in extremities. Neuro: Pt denies new onset weakness, paresthesias. (Ruperto Winston) - Related Data Home Medications Medication Instructions Recorded Confirmed Mguvrar-Zvht-Wqzu [id number] 1 tab PO Q6H PRN 01/09/19 01/31/19 [Excedrin] Pantoprazole [Protonix] 40 mg PO DAILY 01/12/19 01/31/19 Metoprolol Tartrate 12.5 mg PO BID 01/25/19 01/31/19 Previous Rx's Medication Instructions Recorded Aspirin 325 mg PO DAILY #30 tab 01/10/19 Lisinopril [Zestril] 20 mg PO DAILY tab 01/10/19 Allergies Allergy/AdvReac Type Severity Reaction Status Date / Time Iodinated Contrast- Oral and Allergy Rash/Hives Verified 01/31/19 20:27 IV Dye Review of Systems ROS Other: All systems not noted in ROS Statement are negative. <Sb Law - Last Filed: 01/31/19 16:40> ROS Other: All systems not noted in ROS Statement are negative. <Ruperto Winston - Last Filed: 01/31/19 22:56> ROS Statement: Those systems with pertinent positive or pertinent negative responses have been documented in the HPI. Past Medical History Past Medical History: Chest Pain / Angina, Hypertension Additional Past Medical History / Comment(s): diff swallowing at times-watches what she eats and chews her pills, migraines, "chest pressure", History of Any Multi-Drug Resistant Organisms: MRSA Date of last positivie culture/infection: 2017 MDRO Source:: face Past Surgical History: Heart Catheterization, Hernia Repair, Uterine Ablation Additional Past Surgical History / Comment(s): EGD with dilations, bilateral inguinal hernia repairs, colonoscopy. Past Anesthesia/Blood Transfusion Reactions: No Reported Reaction Additional Past Anesthesia/Blood Transfusion Reaction / Comment(s): Pt has claustrophobia. Past Psychological History: Depression Smoking Status: Never smoker Past Alcohol Use History: Occasional Past Drug Use History: None Reported - Past Family History Father Family Medical History: AFIB Mother Family Medical History: AFIB <Ruperto Winston - Last Filed: 01/31/19 22:56> General Exam Limitations: no limitations <Ruperto Winston - Last Filed: 01/31/19 22:56> - General Exam Comments Initial Comments: Constitutional: NAD, AOX3, Pt has pleasant affect. HEENT: NC/AT, trachea midline, neck supple, no lymphadenopathy. Posterior pharynx non erythematous, without exudates. External ears appear normal, without discharge. Mucous membranes moist. Eyes PERRLA, EOM intact. There is no scleral icterus. No pallor noted. Cardiopulmonary: RRR, no murmurs, rubs or gallops, no JVD noted. Lungs CTAB in anterior and posterior rasheed. No peripheral edema. Abdominal exam: Abdomen soft and non-distended. Abdomen non-tender to palpation in all 4 quadrants. Bowel sounds active in LLQ. No hepatosplenomegaly. No ecchymosis Neuro: CN II-XII grossly intact. No nuchal rigidity. MSK: Left radial pulse +2. Right radial pulse diminished, pulse identified by Doppler. Full active range of motion in upper extremity. Extremity normal temperature and color of extremity. Capillary refill <2 seconds. No posterior calf tenderness bilaterally, homans sign negative bilaterally. Sensation intact in upper and lower extremities. Full active ROM in upper and lower extremities, 5/5 stregnth. (Ruperto Winston) Course <Sb Law - Last Filed: 01/31/19 16:40> Vital Signs 01/31/19 01/31/19 12:45 18:11 Temperature 98.0 F Pulse Rate 74 64 Respiratory 18 20 Rate Blood Pressure 140/72 139/77 O2 Sat by Pulse 98 98 Oximetry - Reevaluation(s) Reevaluation #1: 01/31/19 15:43 Patient was reevaluated by myself, Dr. Law. Patient has decreased radial pulse. Pain increases with motion of the hand and wrist. Cap refill distally is less than 2 seconds. There is good sensation and good strength. Patient does have significant discomfort to that area. Case was discussed with Dr. Ortiz, who will discuss case with Dr. Sun and call back. 01/31/19 15:49 Dr. Sun is not available and Dr. Ortiz recommends calling Dr. Kilpatrick. Case was discussed with Dr. Kilpatrick who will come evaluate the patient. 01/31/19 16:41 Dr. Kilpatrick did come evaluate patient and recommends admission with low-dose heparin. Will consider angiogram tomorrow. Case was also discussed in detail with Dr. Pendleton, covering for Dr. Burgess, who will admit. (Sb Law) Medical Decision Making - Lab Data Result diagrams: 01/31/19 14:39 01/31/19 14:39 <Sb Law - Last Filed: 01/31/19 16:40> - Lab Data Result diagrams: 01/31/19 14:39 01/31/19 14:39 <Ruperto Winston - Last Filed: 01/31/19 22:56> - Medical Decision Making 49-year-old female patient with past history of hypertension, esophageal dilation presents to ED with approximately 24 hours of pain in her right upper extremity, most pain is located at her distal radial artery. Patient reports that she had a heart catheterization on Thursday01/26/[address] Haines. Within the last 24 hours patient began developing a substantial amount of pain at the site of the heart catheterization on her right radial artery. Patient now complains of pain radiating up her forearm and upper arm. Patient denies any paresthesias, loss of sensation. Patient denies any other complaints today. Patient denies chest pain, shortness of breath, abdominal pain, nausea vomiting diarrhea. Patient vital signs stable, afebrile. Physical exam displayed: Left radial pulse +2. Right radial pulse diminished, pulse identified by Doppler. Full active range of motion in upper extremity. Extremity normal temperature and color of extremity. Capillary refill <2 seconds. No posterior calf tenderness bilaterally, homans sign negative bilaterally. Sensation intact in upper and lower extremities. Full active ROM in upper and lower extremities, 5/5 stregnth. Left investigations reveal non-impressive CBC, CMP, correlation studies. Arterial and venous duplex Doppler performed a right upper extremity. Per radiologist the venous duplex Doppler was negative for DVT. Patient really not any of. The official read was also pending on the arterial study, per ultrasound it will be read tomorrow. The patient was seen and evaluated both by attending physician Dr. Law as well as vascular surgeon Dr. Kilpatrick. Per recommendation of Dr. Kilpatrick patient placed on low intensity heparin, will be admitted for arteriogram tomorrow. Patient pain well-controlled in ED. Pt admitted to Dr. Pendleton per Dr. Law. (Ruperto Winston) - Lab Data Lab Results 01/31/19 01/31/19 01/31/19 Range/Units 14:39 14:39 14:39 WBC 4.1 (3.8-10.6) k/uL RBC 4.76 (3.80-5.40) m/uL Hgb 14.9 (11.4-16.0) gm/dL Hct 43.1 (34.0-46.0) % MCV 90.4 (80.0-100.0) fL MCH 31.2 (25.0-35.0) pg MCHC 34.5 (31.0-37.0) g/dL RDW 13.4 (11.5-15.5) % Plt Count 224 (150-450) k/uL Neutrophils % 60 % Lymphocytes % 27 % Monocytes % 5 % Eosinophils % 7 % Basophils % 1 % Neutrophils # 2.4 (1.3-7.7) k/uL Lymphocytes # 1.1 (1.0-4.8) k/uL Monocytes # 0.2 (0-1.0) k/uL Eosinophils # 0.3 (0-0.7) k/uL Basophils # 0.0 (0-0.2) k/uL PT 10.4 (9.0-12.0) sec INR 1.0 (<1.2) APTT 26.0 (22.0-30.0) sec Sodium 140 (137-145) mmol/L Potassium 4.1 (3.5-5.1) mmol/L Chloride 106 (98-107) mmol/L Carbon Dioxide 27 (22-30) mmol/L Anion Gap 7 mmol/L BUN 8 (7-17) mg/dL Creatinine 0.65 (0.52-1.04) mg/dL Est GFR (CKD-EPI)AfAm >90 (>60 ml/min/1.73 sqM) Est GFR (CKD-EPI)NonAf >90 (>60 ml/min/1.73 sqM) Glucose 91 (74-99) mg/dL Calcium 9.5 (8.4-10.2) mg/dL Total Bilirubin 1.0 (0.2-1.3) mg/dL AST 23 (14-36) U/L ALT 30 (9-52) U/L Alkaline Phosphatase 53 (38-126) U/L Total Protein 7.4 (6.3-8.2) g/dL Albumin 4.4 (3.5-5.0) g/dL Disposition <Sb Law - Last Filed: 01/31/19 16:40> Is patient prescribed a controlled substance at d/c from ED?: No <Ruperto Winston - Last Filed: 01/31/19 22:56> Clinical Impression: Radial artery thrombosis, right Disposition: ADMITTED IP TO THIS HOSP Condition: Serious
[2019-01-31 15:07] LABS: ALT 30 U/L (9-52); AST 23 U/L (14-36); Albumin 4.4 g/dL (3.5-5.0); Alkaline Phosphatase 53 U/L (38-126); Anion Gap 7 mmol/L; Blood Urea Nitrogen 8 mg/dL (7-17); Calcium 9.5 mg/dL (8.4-10.2); Carbon Dioxide 27 mmol/L (22-30); Chloride 106 mmol/L (98-107); Glucose 91 mg/dL (74-99); Potassium 4.1 mmol/L (3.5-5.1); Sodium 140 mmol/L (137-145); Total Protein 7.4 g/dL (6.3-8.2)
[2019-01-31] MEDS ORDERED: HEPARIN SODIUM,PORCINE 5,000 UNIT/ML 1 ML VIAL IV ONE (16:42)
[2019-01-31] MEDS ORDERED: HEPARIN SODIUM,PORCINE 5,000 UNIT/ML 1 ML VIAL IV PRN (16:42)
[2019-01-31] MEDS ORDERED: NALOXONE 0.4 MG/ML 1 ML VIAL IV PRN (16:46)
[2019-01-31] MEDS ORDERED: MORPHINE SULFATE 4 MG/ML SYRINGE IV PRN (16:46)
[2019-01-31] MEDS ORDERED: MORPHINE SULFATE 2 MG/ML SYRINGE IV STA (16:46)
[2019-01-31] MEDS: SODIUM CHLORIDE 0.9% 1,000 ML IV SCH (17:05)
[2019-01-31] MEDS: HEPARIN SOD,PORK IN 0.45% NACL 25,000 UNIT in 0.45% NACL 1 250ML.BAG IV SCH (17:08)
--- NOTE | 2019-01-31 18:51 | CONS ---
CONSULTATION This 49-year-old white female came to the emergency room complaining of pain on her right wrist area where she went for heart catheterization through the radial artery dated 01/26/[address] Sun. Patient states that for the last 48 hours she has had discomfort and pain at her radial site at the wrist area. No history of chest pain. The patient has a medical history of hypertension. No history of diabetes. She is post heart catheterization, which was found to be normal. PHYSICAL EXAMINATION: Patient was seen in her room. NECK: Supple. Trachea central. CHEST: Clear on auscultation. ABDOMEN: Soft. Femorals are 1+. Radial and ulnar not palpable. They are present by the Doppler. The patient has decent capillary refill. Patient had an ultrasound of the right arm, report of which is pending. PLAN: Because of discomfort and pain, we will keep her on heparin and pain medication. We will arrange for a right arm angiogram. Will follow with you. AUGUSITNA / MARCELLUSN: [id number] /
[2019-01-31 19:01] VITALS: BMI 20.2
[2019-01-31] MEDS ORDERED: ASPIRIN-ACET-CAFF 250-250-65MG 1 EACH TAB PO PRN (20:46)
[2019-01-31] MEDS: METOPROLOL TARTRATE 12.5 MG TAB PO SCH (21:59)
[2019-01-31] MEDS: ACETAMINOPHEN TAB 325 MG TAB PO PRN (22:01)
[2019-01-31] MEDS: MORPHINE SULFATE 4 MG/ML SYRINGE IVP PRN (22:49)
[2019-02-01 00:32] LABS: Partial Thromboplastin Time 44.7 sec (22.0-30.0); Prothrombin Time 10.8 sec (9.0-12.0)
[2019-02-01] MEDS: MORPHINE SULFATE 4 MG/ML SYRINGE IVP PRN ×5 (02:58→23:04)
[2019-02-01] MEDS: PANTOPRAZOLE 40 MG TABLET PO SCH (06:14)
[2019-02-01 06:17] LABS: Basophils % (A) 1 %; Eosinophils # (A) 0.3 k/uL (0-0.7); Eosinophils % (A) 7 %; HCT 39.7 % (34.0-46.0); HGB 13.6 gm/dL (11.4-16.0); Lymphocytes # (A) 1.8 k/uL (1.0-4.8); Lymphocytes % (A) 40 %; MCH 32.1 pg (25.0-35.0); MCHC 34.3 g/dL (31.0-37.0); MCV 93.8 fL (80.0-100.0); Mean Platelet Volume 5.8; Monocytes # (A) 0.2 k/uL (0-1.0); Monocytes % (A) 5 %; Neutrophils # (A) 2.1 k/uL (1.3-7.7); Neutrophils % (A) 46 %; Platelet Count 191 k/uL (150-450); RBC 4.24 m/uL (3.80-5.40); RDW 13.5 % (11.5-15.5); WBC 4.6 k/uL (3.8-10.6)
[2019-02-01] MEDS ORDERED: methylPREDNISolone SOD SUCCI 125 MG/2 ML VIAL IV STA (08:29)
[2019-02-01] MEDS ORDERED: FAMOTIDINE 20 MG/2 ML VIAL IV STA (08:29)
[2019-02-01] MEDS ORDERED: diphenhydrAMINE 50 MG/ML 1 ML VIAL IVP STA (08:29)
--- NOTE | 2019-02-01 08:29 | US ---
EXAMINATION TYPE: US radial artery UE RT DATE OF EXAM: 01/31/2019 COMPARISON: NONE CLINICAL HISTORY: Pain. Right radial arterial approach used for heart cath on Thursday01/26/2019. Sary n in wrist at insert site Right radial artery appears occluded from cath insert site to proximal portion. IMPRESSION: Right radial artery appears to be occluded. No flow is identified.
[2019-02-01] MEDS: METOPROLOL TARTRATE 12.5 MG TAB PO SCH ×2 (09:22→19:45)
[2019-02-01] MEDS: LISINOPRIL 20 MG TAB PO SCH (09:22)
[2019-02-01] MEDS: ASPIRIN 325 MG TAB PO SCH (09:22)
[2019-02-01] MEDS: ACETAMINOPHEN TAB 325 MG TAB PO PRN ×3 (09:23→21:58)
--- NOTE | 2019-02-01 12:10 | P.CON ---
Consult Note - . Consult date: 02/01/19 Assessment/Plan:: Vascular surgery second opinion: Reason for request: Right arm pain status post right radial artery heart catheterization History chief complaint: This 49-year-old woman had complained of chest pressure. 6 days ago she underwent a heart cath via right radial approach. Early on she had a lot of aching in the area. In the last couple of days she experienced a rash on her right arm. She experienced pain in the right forearm and somewhat up into the lower portion of the upper arm. She has had no hand symptoms. She can exercise her right hand with vigorous squeezing without symptoms. Past medical history is otherwise noncontributory. Please refer to other notes for more detail in this regard. It should be noted that she is ALLERGIC to IV contrast. Physical examination: Alert oriented well-developed well-nourished 49-year-old woman in currently no acute distress. Normal brachial pulse. Palpable ulnar pulse. Right hand is the same temperature and color as her left hand. No change in color and no symptoms on vigorous squeezing of the right hand. She has mild ecchymosis around the puncture site. Duplex shows occlusion of the radial artery but patency of the brachial and ulnar. She has a normal pressure at the right ulnar. Laboratory Last Values WBC 4.6 k/uL (3.8-10.6) 02/01/19 06:00 RBC 4.24 m/uL (3.80-5.40) 02/01/19 06:00 Hgb 13.6 gm/dL (11.4-16.0) 02/01/19 06:00 Hct 39.7 % (34.0-46.0) 02/01/19 06:00 MCV 93.8 fL (80.0-100.0) 02/01/19 06:00 MCH 32.1 pg (25.0-35.0) 02/01/19 06:00 MCHC 34.3 g/dL (31.0-37.0) 02/01/19 06:00 RDW 13.5 % (11.5-15.5) 02/01/19 06:00 Plt Count 191 k/uL (150-450) 02/01/19 06:00 Neutrophils % 46 % 02/01/19 06:00 Lymphocytes % 40 % 02/01/19 06:00 Monocytes % 5 % 02/01/19 06:00 Eosinophils % 7 % 02/01/19 06:00 Basophils % 1 % 02/01/19 06:00 Neutrophils # 2.1 k/uL (1.3-7.7) 02/01/19 06:00 Lymphocytes # 1.8 k/uL (1.0-4.8) 02/01/19 06:00 Monocytes # 0.2 k/uL (0-1.0) 02/01/19 06:00 Eosinophils # 0.3 k/uL (0-0.7) 02/01/19 06:00 Basophils # 0.0 k/uL (0-0.2) 02/01/19 06:00 PT 10.8 sec (9.0-12.0) 01/31/19 23:35 INR 1.0 (<1.2) 01/31/19 23:35 APTT 64.6 sec (22.0-30.0) H 02/01/19 06:15 Sodium 140 mmol/L (137-145) 01/31/19 14:39 Potassium 4.1 mmol/L (3.5-5.1) 01/31/19 14:39 Chloride 106 mmol/L (98-107) 01/31/19 14:39 Carbon Dioxide 27 mmol/L (22-30) 01/31/19 14:39 Anion Gap 7 mmol/L 01/31/19 14:39 BUN 8 mg/dL (7-17) 01/31/19 14:39 Creatinine 0.65 mg/dL (0.52-1.04) 01/31/19 14:39 Est GFR (CKD-EPI)AfAm >90 (>60 ml/min/1.73 sqM) 01/31/19 14:39 Est GFR (CKD-EPI)NonAf >90 (>60 ml/min/1.73 sqM) 01/31/19 14:39 Glucose 91 mg/dL (74-99) 01/31/19 14:39 Calcium 9.5 mg/dL (8.4-10.2) 01/31/19 14:39 Total Bilirubin 1.0 mg/dL (0.2-1.3) 01/31/19 14:39 AST 23 U/L (14-36) 01/31/19 14:39 ALT 30 U/L (9-52) 01/31/19 14:39 Alkaline Phosphatase 53 U/L (38-126) 01/31/19 14:39 Total Protein 7.4 g/dL (6.3-8.2) 01/31/19 14:39 Albumin 4.4 g/dL (3.5-5.0) 01/31/19 14:39 Impression: Occlusion of the right radial. Symptoms sound more like a limited dissection of the radial artery. This opinion is reinforced by what is probably a small radial artery fairly normal in its morphology. Her symptoms are not ischemic but more irritation from the dissection itself with mild extravasation. Recommendation: I discussed with Dr. Kilpatrick and the patient in detail options for therapy. A computed tomography scan would risk her contrast ALLERGY. It is unlikely to provide any additional information since the density of the thrombus would be fairly similar to the density of normal arterial wall even dissected. Any intervention would only be directed at improving flow to the hand, which does not appear to be compromised. I have suggested that the patient weaned off narcotics and aim more for anti-inflammatory agents. I would maintain a conservative approach as long as the hand does not appear to be compromised.
--- NOTE | 2019-02-01 12:23 | US ---
EXAMINATION TYPE: US radial artery UE RT DATE OF EXAM: 02/01/2019 COMPARISON: US dated 01/31/2019 CLINICAL HISTORY: right radial artery thrombosis. Post right radial heart cath, scanned yesterday: ri ght radial artery appears to be occluded. Right arm: Grayscale, color Doppler, spectral Doppler imaging performed of the arterial supply to the right upper extremity. Visualized portions of the brachial, ulnar, axillary arteries show color flow, triphasic waveform not ed in the brachial and axillary arteries. Again noted there is low level internal echo within the distribution of the radial artery. Lack of co daniel flow or Doppler waveforms. IMPRESSION: Radial artery occlusion in the right upper extremity.
[2019-02-01] MEDS: IBUPROFEN 400 MG TAB PO PRN (15:24)
--- NOTE | 2019-02-01 16:19 | HP ---
HISTORY AND PHYSICAL DATE OF ADMISSION: 01/31/2019 PRESENTING COMPLAINT: Right wrist pain and swelling. HISTORY OF PRESENTING COMPLAINT: This is a very pleasant 49-year-old patient of Dr. Lemus. Chronic stable medical conditions include hypertension, recurrent esophageal stricture with dilatation by Dr. Mendoza, the last one being done 2 weeks ago, and also she has had depression but has not been taking any medication for the last 2 years; controlled. Patient did undergo cardiac catheterization by Dr. Sun on January 26, went home, started having some swelling in the wrists that day, remained stable for the next 2 days, but on Thursday she started having increasing swelling in the right hand. It became rather painful, with numbness extending to the proximal arm. She decided to come in. The patient was seen by Dr. Kilpatrick last night. Patient was put on IV heparin. An ultrasound of the artery was done. The ultrasound came back this morning showing occlusion of the radial artery. The patient was seen by Dr. Stewart from Vascular and Dr. Kilpatrick. It was decided that, since patient has good circulation in the right hand, just to manage this conservatively; an angiogram would not serve any purpose. Pain is getting better. The patient is able to move her fingers. No area of any necrosis swelling has gone down. REVIEW OF SYSTEMS: CONSTITUTIONAL: None. HEENT: None. RESPIRATORY: None. CARDIOVASCULAR: None. GASTROINTESTINAL: Occasional chest pain. GENITOURINARY: None. MUSCULOSKELETAL: None. DERMATOLOGICAL: None. HEMATOLOGICAL: None. LYMPHATICS: None. PSYCHIATRY: None. NEUROLOGICAL: None. PAST MEDICAL HISTORY: 1. Hypertension. 2. Esophageal stricture. 3. Depression, off medications. PAST SURGICAL HISTORY: 1. Cardiac catheterization. 2. Hernia repair. 3. Uterine ablation. 4. EGD with dilatation. 5. Bilateral inguinal hernia repair. SOCIAL HISTORY: Does not smoke. Alcohol occasionally. with 5 children. FAMILY HISTORY: Atrial fibrillation. HOME MEDICATIONS: 1. Protonix 40 mg a day. 2. Metoprolol 12.5 b.i.d. 3. Zestril 20 mg p.o. daily. 4. Excedrin 1 tablet q.6 p.r.n. 5. Aspirin 325 p.o. daily. ALLERGIES: IV CONTRAST DYE. PHYSICAL EXAMINATION: VITAL SIGNS ON PRESENTATION: Temperature 98, pulse 74, respiration 18, blood pressure 140/72, pulse ox 98% on room air. GENERAL APPEARANCE: Thin build; BMI 21. Sitting up, comfortable. EYES: Pupils equal. Conjunctivae normal. HEENT: External appearance of nose and ears normal. Oral cavity normal. NECK: JVD not raised. Mass not palpable. RESPIRATORY: Effort normal. Lungs are clear. CARDIOVASCULAR: First and second sounds normal. No edema. ABDOMEN: Soft, non-tender. Liver and spleen not palpable. LYMPHATIC: No lymph node palpable in neck or axillae. PSYCHIATRY: Alert and oriented x3. Mood and affect normal. NEUROLOGICAL: Pupils equal. Cranial nerves grossly intact. Power and sensation grossly intact. ARTERIAL EXAM: Patient's right hand has good capillary refill. No areas of decreased sensation. Good movement in the fingers. Very slight tenderness on the distal aspect of the radial artery. INVESTIGATIONS: White count 4.1, hemoglobin 14.9, potassium 4.1. BUN and creatinine are normal. Duplex scan, upper extremity, shows occlusion of the right radial artery. ASSESSMENT: 1. Acute right radial artery occlusion following cardiac catheterization that was done on 01/26/2019. 2. Recurrent esophageal stricture followed by recent dilatation. 3. Essential hypertension. 4. IV heparin monitoring. PLAN: Patient will remain on IV heparin. Home medications are resumed. Care was discussed with the patient. Questions were answered. Follow up with Vascular Surgery. MMODL / IJN: [id number] /
[2019-02-01] MEDS: SODIUM CHLORIDE 0.9% 1,000 ML IV SCH (18:55)
[2019-02-01] MEDS: HEPARIN SOD,PORK IN 0.45% NACL 25,000 UNIT in 0.45% NACL 1 250ML.BAG IV SCH ×2 (18:55→22:00)
[2019-02-01] MEDS ORDERED: predniSONE 50 MG TAB PO ONE (19:00)
[2019-02-02] MEDS ORDERED: predniSONE 50 MG TAB PO ONE ×2 (01:00→07:00)
[2019-02-02 03:36] VITALS: PULSE 65; TEMP 98.2
[2019-02-02] MEDS: PANTOPRAZOLE 40 MG TABLET PO SCH (05:56)
[2019-02-02] MEDS: MORPHINE SULFATE 4 MG/ML SYRINGE IVP PRN ×2 (05:58→09:47)
[2019-02-02 06:33] LABS: Basophils # (A) 0.1 k/uL (0-0.2); Basophils % (A) 1 %; Eosinophils # (A) 0.3 k/uL (0-0.7); Eosinophils % (A) 7 %; HCT 39.6 % (34.0-46.0); HGB 13.1 gm/dL (11.4-16.0); Lymphocytes # (A) 1.7 k/uL (1.0-4.8); Lymphocytes % (A) 44 %; MCH 31.1 pg (25.0-35.0); MCHC 33.2 g/dL (31.0-37.0); MCV 93.8 fL (80.0-100.0); Mean Platelet Volume 5.9; Monocytes # (A) 0.2 k/uL (0-1.0); Monocytes % (A) 6 %; Neutrophils # (A) 1.6 k/uL (1.3-7.7); Neutrophils % (A) 40 %; Platelet Count 185 k/uL (150-450); RBC 4.22 m/uL (3.80-5.40); RDW 13.4 % (11.5-15.5); WBC 3.8 k/uL (3.8-10.6)
[2019-02-02] MEDS ORDERED: diphenhydrAMINE 50 MG CAP PO ONE (07:00)
--- NOTE | 2019-02-02 07:56 | PN ---
PROGRESS NOTE This is a 49-year-old female she had a heart catheterization, right radial approach, last week. Patient came with discomfort pain in the right arm. We did the ultrasound, found to have radial artery occluded. Brachial artery is patent. PHYSICAL EXAMINATION: On examination, patient has ulnar and brachial pulses are present. No pulse in the radial artery. Hand is warm. Decent capillary refill. Patient has been on heparin and pain medication. Today she is feeling well. We will hold the heparin. We put on Motrin. The patient will go home today and followup in the office in 2 weeks. MMODL / IJN: [id number] /
[2019-02-02] MEDS: METOPROLOL TARTRATE 12.5 MG TAB PO SCH (08:04)
[2019-02-02] MEDS: ASPIRIN 325 MG TAB PO SCH (08:04)
[2019-02-02] MEDS: ACETAMINOPHEN TAB 325 MG TAB PO PRN ×2 (08:04→14:02)
[2019-02-02] MEDS: LISINOPRIL 20 MG TAB PO SCH (08:04)
[2019-02-02 08:45] VITALS: RESP 18
--- NOTE | 2019-02-02 09:29 | P.ARTDOP ---
Arterial Doppler Upper extremity arterial Doppler: Reason for study: Right arm pain post radial access for heart cath Date of study: 01/31/2019 Findings: Doppler waveforms are multiphasic throughout on the left and on the right is to the ulnar. The radial on the right is atypical. There are no segmental or right to left pressure gradients. Pressures were not measured on the right radial or ulnar due to wrist pain. Digital pressures were equal bilaterally. Impression: Findings suggest aberrant flow in the right radial, which would correlate with obstructive process. Digital perfusion appears unaffected. Clinical correlation recommended.
[2019-02-02 12:11] VITALS: BP 125/56
[2019-02-02] MEDS: IBUPROFEN 400 MG TAB PO PRN (14:02)
--- NOTE | 2019-02-02 22:11 | P.DS ---
Providers Date of admission: 01/31/19 16:46 Attending physician: Waylon Pendleton Consults: 01/31/19 16:41 Consult Physician Urgent Consulting Provider: Satinder Kilpatrick Consult Reason/Comments: Radial artery thrombosis Do you want consulting provider notified?: Already Contacted 02/01/19 12:01 Consult Physician Routine Consulting Provider: Amauri Stewart Consult Reason/Comments: second opinion Do you want consulting provider notified?: Already Contacted Primary care physician: Hank Snow [facility] [place] Hospital Course: On-call hospitalist covering Dr. Pendleton starting today on 02/02/2019 diagnoses: Acute right radial artery occlusion after cardiac catheterization on 01/26/2019, evaluated by vascular surgery and cleared for discharge Right hand pain and swelling, secondary to above, improving History of Recurrent esophageal stricture, status post dilatation Hospital course This is a pleasant 49 years old female with past medical history of chest pain/angina, hypertension, esophageal stricture/achalasia status post dilatation. Patient had cardiac cath as per documents on 01/26/2019. Patient presents with right wrist and distal forearm pain and swelling. Patient has been evaluated by vascular surgery team and started on heparin drip for right radial artery occlusion, seen on Duplex study but patent brachial and ulnar arteries. Patient right hand function looks stable patient has normal strength function without loss of sensation. Patient has been evaluated by Dr. Kilpatrick and Dr. Stewart from vascular surgery team and they recommended conservative measure. managment with NSAISs is recommended. heparin drip was discontinued eventually and pt was cleared by vascular surgery for discharge. pt right hand function looks stable, she still has some pain in the right wrist but is improving, no swelling is noted or very minimal one. no loss of sensation , no discoloration is noted , puncture site at the right wrist area looks healing . i discussed the case with who recommends pt will be discharge on motrin, no need for anticoagulation . pt will f/u with in the office Patient problems and management plan was discussed with the patient and she verbalized understanding and acceptance Patient was found stable and can be discharged home however she needs follow-up as an outpatient. pt agrees with appointment made for her and its timing. Gen: patient is a AAOx3, no distress CVS: S1-S2, RRR, no murmur Lungs: B/L CTA, no wheezing Abdomen: soft, no distention, no tenderness, positive bowel sounds Extremity: no leg edema or induration. Right hand: Normal strength, 5/5, sensation is intact. Right wrist: Puncture site on the ventral surface is healing. Mild to moderate tenderness on the ventral side of the right wrist. No signs symptoms of cellulitis Time spent more than 35 minutes Patient Condition at Discharge: Stable Plan - Discharge Summary Discharge Rx Participant: No New Discharge Prescriptions: New Ibuprofen [Motrin] 400 mg PO Q6HR PRN #20 tab PRN Reason: MODERATE Pain Acetaminophen Tab [Tylenol] 650 mg PO Q4HR PRN tab PRN Reason: Mild Pain Or Fever > 100.5 Continue [id number] [Excedrin] 1 tab PO Q6H PRN PRN Reason: Pain Lisinopril [Zestril] 20 mg PO DAILY tab Aspirin 325 mg PO DAILY #30 tab Pantoprazole [Protonix] 40 mg PO DAILY Metoprolol Tartrate 12.5 mg PO BID Discharge Medication List [id number] [Excedrin] 1 tab PO Q6H PRN 01/09/19 [History] Aspirin 325 mg PO DAILY #30 tab 01/10/19 [Rx] Lisinopril [Zestril] 20 mg PO DAILY tab 01/10/19 [Rx] Pantoprazole [Protonix] 40 mg PO DAILY 01/12/19 [History] Metoprolol Tartrate 12.5 mg PO BID 01/25/19 [History] Acetaminophen Tab [Tylenol] 650 mg PO Q4HR PRN tab 02/02/19 [Rx] Ibuprofen [Motrin] 400 mg PO Q6HR PRN #20 tab 02/02/19 [Rx] Follow up Appointment(s)/Referral(s): Darrel Sun MD [STAFF PHYSICIAN] - 02/22/19 10:30 am (Thursday -previously scheduled appointment) Hank Lemus MD [Primary Care Provider] - 1-2 days (Spoke to standpipe tender. Office will call with appointment time.) Lenora Stephens MD [STAFF PHYSICIAN] - 10 Days (history of your esophageal stricture ) Satinder Kilpatrick MD [STAFF PHYSICIAN] - 02/16/19 12:00 pm (Thursday) Patient Instructions/Handouts: *Surgery [facility] - After Heart Catheterization - Front Office Medical Assistant Instructions, Peripheral Artery Disease (DC) Activity/Diet/Wound Care/Special Instructions: cardiac diet activity is limited till you see your doctor Discharge Disposition: HOME SELF-CARE
== END 2019-02-02 15:15 | disposition home or self-care (01) | DRG 315 ==
LOC: EC 12:05 → 3SCARD 16:46
PROVIDERS: ADMIT Hospitalist; ATTEND Hospitalist
DX: I97.89 Other postprocedural complications and disorders of the circulatory system, not elsewhere classified (principal); I74.2 Embolism and thrombosis of arteries of the upper extremities; K22.0 Achalasia of cardia; I10 Essential (primary) hypertension; G43.909 Migraine, unspecified, not intractable, without status migrainosus; F40.240 Claustrophobia; F32.9 Major depressive disorder, single episode, unspecified; Z79.899 Other long term (current) drug therapy; Z79.82 Long term (current) use of aspirin; Z86.14 Personal history of Methicillin resistant Staphylococcus aureus infection; Z91.041 Radiographic dye allergy status; Z82.49 Family history of ischemic heart disease and other diseases of the circulatory system
CPT/HCPCS: 36415; 80053; 85025; 85610; 85730; 93923; 96365; 96375; 96376; 99285

== ENCOUNTER 2021-12-02 23:43 | Emergency (ER) | payer BC, OTHER ==
[2021-12-02 23:56] VITALS: TEMP 97.9
--- NOTE | 2021-12-03 00:01 | ED ---
Abdominal Pain HPI - General Chief Complaint: Abdominal Pain Stated Complaint: Abdominal pain Time Seen by Provider: 12/03/21 00:00 Source: patient, RN notes reviewed, old records reviewed Mode of arrival: EMS Limitations: no limitations - History of Present Illness Initial Comments: This is a 51-year-old female DF for evaluation of sudden onset of severe abdominal pain left flank pain left groin pain. Symptoms originally began tonight kind of went away and then now currently hit her leg on her brakes. Symptoms significantly worsen. Are progressively worsening here in the ER. She has positive nausea with out significant active vomiting. Positive for abdominal pain. Left-sided flank pain. Patient has no trauma to the area no prior history of similar pain. States that she tries urinated is painful and she feels like she can't urinate. Those symptoms have improved pain similarly MD Complaint: abdominal pain, flank pain (Left-sided) -: hour(s) Location: LLQ, epigastric, L flank Radiation: L flank Migration to: LLQ Severity: moderate Severity scale (1-10): 7 Quality: stabbing, sharp Consistency: constant Improves With: nothing Worsens With: nothing Associated Symptoms: nausea Treatments Prior to Arrival: other (none) - Related Data Home Medications Medication Instructions Recorded Confirmed [id number] 1 tab PO Q6H PRN 01/09/19 01/31/19 [Excedrin] Pantoprazole [Protonix] 40 mg PO DAILY 01/12/19 01/31/19 Metoprolol Tartrate 12.5 mg PO BID 01/25/19 01/31/19 Previous Rx's Medication Instructions Recorded Aspirin 325 mg PO DAILY #30 tab 01/10/19 lisinopriL [Zestril] 20 mg PO DAILY tab 01/10/19 Acetaminophen Tab [Tylenol] 650 mg PO Q4HR PRN tab 02/02/19 Ibuprofen [Motrin] 400 mg PO Q6HR PRN #20 tab 02/02/19 Allergies Allergy/AdvReac Type Severity Reaction Status Date / Time Iodinated Contrast Media Allergy Rash/Hives Verified 01/31/19 20:27 [Iodinated Contrast- Oral and IV Dye] Review of Systems ROS Statement: Those systems with pertinent positive or pertinent negative responses have been documented in the HPI. ROS Other: All systems not noted in ROS Statement are negative. Past Medical History Past Medical History: Chest Pain / Angina, Hypertension Additional Past Medical History / Comment(s): diff swallowing at times-watches what she eats and chews her pills, migraines, "chest pressure", History of Any Multi-Drug Resistant Organisms: MRSA Date of last positivie culture/infection: 2016 MDRO Source:: face Past Surgical History: Heart Catheterization, Hernia Repair, Uterine Ablation Additional Past Surgical History / Comment(s): EGD with dilations, bilateral inguinal hernia repairs, colonoscopy. Past Anesthesia/Blood Transfusion Reactions: No Reported Reaction Additional Past Anesthesia/Blood Transfusion Reaction / Comment(s): Pt has claustrophobia. Past Psychological History: Depression Past Alcohol Use History: Occasional Past Drug Use History: None Reported - Past Family History Father Family Medical History: AFIB Mother Family Medical History: AFIB General Exam Limitations: no limitations General appearance: alert, in no apparent distress Head exam: Present: atraumatic, normocephalic, normal inspection Eye exam: Present: normal appearance, PERRL, EOMI. Absent: scleral icterus, conjunctival injection, periorbital swelling ENT exam: Present: normal exam, mucous membranes moist Neck exam: Present: normal inspection. Absent: tenderness, meningismus, lymphadenopathy Respiratory exam: Present: normal lung sounds bilaterally. Absent: respiratory distress, wheezes, rales, rhonchi, stridor Cardiovascular Exam: Present: regular rate, normal rhythm, normal heart sounds. Absent: systolic murmur, diastolic murmur, rubs, gallop, clicks GI/Abdominal exam: Present: soft, normal bowel sounds. Absent: distended, tenderness, guarding, rebound, rigid Extremities exam: Present: normal inspection, full ROM, normal capillary refill. Absent: tenderness, pedal edema, joint swelling, calf tenderness Back exam: Present: normal inspection Neurological exam: Present: alert, oriented X3, CN II-XII intact Psychiatric exam: Present: normal affect, normal mood Skin exam: Present: warm, dry, intact, normal color. Absent: rash Course Vital Signs 12/02/21 12/03/21 12/03/21 23:46 01:37 03:00 Temperature 97.9 F Pulse Rate 77 78 74 Respiratory 18 18 16 Rate Blood Pressure 172/96 172/96 153/92 O2 Sat by Pulse 99 98 100 Oximetry 12/03/21 04:08 Temperature Pulse Rate 76 Respiratory 16 Rate Blood Pressure 172/88 O2 Sat by Pulse 98 Oximetry - Reevaluation(s) Reevaluation #1: 12/03/21 medical record is reviewed Patient has adequate current pain control Reevaluation #2: 12/03/21 Patient is informed of results and questions are answered Patient feels comfortable with discharge Medical Decision Making - Medical Decision Making Oriented female DEL with sudden onset of left flank pain cramping pain we'll suspect left passed kidney stone. Patient otherwise has normal urine normal CT normal labwork and can be discharged home - Lab Data Result diagrams: 12/03/21 01:21 12/03/21 01: Lab Results 12/03/21 12/03/21 12/03/21 Range/Units 01: 01: 01:21 WBC 9.4 (3.8-10.6) k/uL RBC 4.86 (3.80-5.40) m/uL Hgb 15.3 (11.4-16.0) gm/dL Hct 43.7 (34.0-46.0) % MCV 90.1 (80.0-100.0) fL MCH 31.5 (25.0-35.0) pg MCHC 34.9 (31.0-37.0) g/dL RDW 12.9 (11.5-15.5) % Plt Count 301 (150-450) k/uL MPV 6.6 Neutrophils % 81 % Lymphocytes % 14 % Monocytes % 4 % Eosinophils % 0 % Basophils % 1 % Neutrophils # 7.6 (1.3-7.7) k/uL Lymphocytes # 1.3 (1.0-4.8) k/uL Monocytes # 0.4 (0-1.0) k/uL Eosinophils # 0.0 (0-0.7) k/uL Basophils # 0.1 (0-0.2) k/uL Sodium 137 (137-145) mmol/L Potassium 4.2 (3.5-5.1) mmol/L Chloride 102 (98-107) mmol/L Carbon Dioxide 25 (22-30) mmol/L Anion Gap 10 mmol/L BUN 14 (7-17) mg/dL Creatinine 0.65 (0.52-1.04) mg/dL Est GFR (CKD-EPI)AfAm >90 (>60 ml/min/1.73 sqM) Est GFR (CKD-EPI)NonAf >90 (>60 ml/min/1.73 sqM) Glucose 125 H (74-99) mg/dL Plasma Lactic Acid Roosevelt (0.7-2.0) mmol/L Calcium 10.3 H (8.4-10.2) mg/dL Total Bilirubin 0.8 (0.2-1.3) mg/dL AST 18 (14-36) U/L ALT 15 (4-34) U/L Alkaline Phosphatase 62 (38-126) U/L Total Protein 7.5 (6.3-8.2) g/dL Albumin 4.5 (3.5-5.0) g/dL Amylase 84 (30-110) U/L Lipase 314 H (23-300) U/L Urine Color Light Yellow Urine Appearance Clear (Clear) Urine pH 8.0 (5.0-8.0) Ur Specific [place] 1.010 (1.001-1.035) Urine Protein Negative (Negative) Urine Glucose (UA) Negative (Negative) Urine Ketones Negative (Negative) Urine Blood Negative (Negative) Urine Nitrite Negative (Negative) Urine Bilirubin Negative (Negative) Urine Urobilinogen <2.0 (<2.0) mg/dL Ur Leukocyte Esterase Negative (Negative) 12/03/21 Range/Units 01:21 WBC (3.8-10.6) k/uL RBC (3.80-5.40) m/uL Hgb (11.4-16.0) gm/dL Hct (34.0-46.0) % MCV (80.0-100.0) fL MCH (25.0-35.0) pg MCHC (31.0-37.0) g/dL RDW (11.5-15.5) % Plt Count (150-450) k/uL MPV Neutrophils % % Lymphocytes % % Monocytes % % Eosinophils % % Basophils % % Neutrophils # (1.3-7.7) k/uL Lymphocytes # (1.0-4.8) k/uL Monocytes # (0-1.0) k/uL Eosinophils # (0-0.7) k/uL Basophils # (0-0.2) k/uL Sodium (137-145) mmol/L Potassium (3.5-5.1) mmol/L Chloride (98-107) mmol/L Carbon Dioxide (22-30) mmol/L Anion Gap mmol/L BUN (7-17) mg/dL Creatinine (0.52-1.04) mg/dL Est GFR (CKD-EPI)AfAm (>60 ml/min/1.73 sqM) Est GFR (CKD-EPI)NonAf (>60 ml/min/1.73 sqM) Glucose (74-99) mg/dL Plasma Lactic Acid Roosevelt 1.0 (0.7-2.0) mmol/L Calcium (8.4-10.2) mg/dL Total Bilirubin (0.2-1.3) mg/dL AST (14-36) U/L ALT (4-34) U/L Alkaline Phosphatase (38-126) U/L Total Protein (6.3-8.2) g/dL Albumin (3.5-5.0) g/dL Amylase (30-110) U/L Lipase (23-300) U/L Urine Color Urine Appearance (Clear) Urine pH (5.0-8.0) Ur Specific [place] (1.001-1.035) Urine Protein (Negative) Urine Glucose (UA) (Negative) Urine Ketones (Negative) Urine Blood (Negative) Urine Nitrite (Negative) Urine Bilirubin (Negative) Urine Urobilinogen (<2.0) mg/dL Ur Leukocyte Esterase (Negative) - Radiology Data Radiology results: report reviewed (CT of the abdomen and pelvis is negative for acute disease), image reviewed Disposition Clinical Impression: Abdominal pain Disposition: HOME SELF-CARE Condition: Good Instructions (If sedation given, give patient instructions): Kidney Stones (ED), Abdominal Pain (ED) Is patient prescribed a controlled substance at d/c from ED?: No Referrals: Hank Lemus MD [Primary Care Provider] - 1-2 days
[2021-12-03] MEDS ORDERED: MORPHINE SULFATE 4 MG/ML SYRINGE IV STA (01:15)
[2021-12-03] MEDS ORDERED: SODIUM CHLORIDE 0.9% 1,000 ML IV STA (01:15)
[2021-12-03] MEDS ORDERED: ONDANSETRON 4 MG/2 ML VIAL IVP STA (01:15)
[2021-12-03 01:53] LABS: Basophils # (A) 0.1 k/uL (0-0.2); Basophils % (A) 1 %; Eosinophils % (A) 0 %; HCT 43.7 % (34.0-46.0); HGB 15.3 gm/dL (11.4-16.0); Lymphocytes # (A) 1.3 k/uL (1.0-4.8); Lymphocytes % (A) 14 %; MCH 31.5 pg (25.0-35.0); MCHC 34.9 g/dL (31.0-37.0); MCV 90.1 fL (80.0-100.0); Mean Platelet Volume 6.6; Monocytes # (A) 0.4 k/uL (0-1.0); Monocytes % (A) 4 %; Neutrophils # (A) 7.6 k/uL (1.3-7.7); Neutrophils % (A) 81 %; Platelet Count 301 k/uL (150-450); RBC 4.86 m/uL (3.80-5.40); RDW 12.9 % (11.5-15.5); WBC 9.4 k/uL (3.8-10.6)
[2021-12-03 02:01] LABS: Appearance,Urine Clear (Clear); Bilirubin,Urine Negative (Negative); Blood,Urine Negative (Negative); Color,Urine Light Yellow; Glucose,Urine (UA) Negative (Negative); Ketones,Urine Negative (Negative); Leukocyte Esterase,Urine Negative (Negative); Nitrite,Urine Negative (Negative); Protein,Urine Negative (Negative); Urobilinogen,Urine <2.0 mg/dL (<2.0)
[2021-12-03 02:05] LABS: ALT 15 U/L (4-34); AST 18 U/L (14-36); African American GFR (CKD) >90 (>60 ml/min/1.73 sqM); Albumin 4.5 g/dL (3.5-5.0); Alkaline Phosphatase 62 U/L (38-126); Amylase 84 U/L (30-110); Anion Gap 10 mmol/L; Blood Urea Nitrogen 14 mg/dL (7-17); Calcium 10.3 mg/dL (8.4-10.2); Carbon Dioxide 25 mmol/L (22-30); Chloride 102 mmol/L (98-107); Glucose 125 mg/dL (74-99); Lipase 314 U/L (23-300); Non-African American GFR(CKD) >90 (>60 ml/min/1.73 sqM); Potassium 4.2 mmol/L (3.5-5.1); Sodium 137 mmol/L (137-145); Total Bilirubin 0.8 mg/dL (0.2-1.3); Total Protein 7.5 g/dL (6.3-8.2)
[2021-12-03] MEDS ORDERED: KETOROLAC 15 MG/ML 1 ML VIAL IVP STA (02:15)
--- NOTE | 2021-12-03 02:55 | CT ---
EXAMINATION TYPE: CT abdomen pelvis wo con DATE OF EXAM: 12/03/2021 COMPARISON: None HISTORY: generalized abdominal pain. no prior on PACS CT DLP: 373.7 mGycm Automated exposure control for dose reduction was used. Images obtained from the diaphragm to the floor the pelvis with no contrast. Lung bases are clear. There is no pleural effusion. Heart size is normal. There is no pericardial eff usion. Liver spleen and stomach pancreas gallbladder appear intact. The bile ducts are not dilated. There is no adrenal mass. Kidneys have normal size. There is no hydronephrosis. Ureters are not dilat ed. There is no retroperitoneal adenopathy. Bladder distends smoothly. There is no inguinal hernia. T here is no free fluid in the pelvis. There is no evidence of pelvic mass. Uterus is intact. Appendix appears normal. Lumbar vertebrae abnormal spacing and alignment. Posterior elements are intact. There is no compressi on fracture. Bony pelvis is intact. The hip joints are intact. IMPRESSION: No evidence of renal stone or obstruction. No dilated ducts.
[2021-12-03 03:02] VITALS: RESP 16
[2021-12-03] MEDS ORDERED: ACET/COD 300 MG/30 MG STARTER PACK 6 TAB BTL PO STA (03:55)
[2021-12-03] MEDS ORDERED: ONDANSETRON 4 MG ODT STARTER PACK 2 TAB BTL PO STA (03:55)
[2021-12-03] MEDS ORDERED: IBUPROFEN 600 MG STARTER PACK 4 TAB BTL PO STA (03:55)
[2021-12-03 04:09] VITALS: BP 172/88; PULSE 76
== END 2021-12-03 04:22 | disposition home or self-care (01) ==
LOC: EC 23:43
DX: R10.32 Left lower quadrant pain (principal); I10 Essential (primary) hypertension; F32.A Depression, unspecified; Z79.82 Long term (current) use of aspirin
CPT/HCPCS: 99284; 96374; 96375 ×2; 96361; 36415; 80053; 82150; 83605; 83690; 85025; 81003; 74176; J2270; J2405; J1885; S0119

== ENCOUNTER 2022-06-20 14:42 | Emergency (ER) | payer BC ==
[2022-06-20 14:55] VITALS: RESP 20; TEMP 97.9
--- NOTE | 2022-06-20 15:29 | ED ---
Back Pain HPI - General Chief Complaint: Back Pain/Injury Stated Complaint: back injury Time Seen by Provider: 06/20/22 15:22 Source: patient, RN notes reviewed, old records reviewed Limitations: no limitations - History of Present Illness Initial Comments: 52-year-old female alert and oriented 4 and well-appearing presents to the emergency room with low back pain since Thursday. Patient states that she felt the pain after trying to push and lift a boat. States that she did see her doctor on Thursday and was prescribed [place] and prednisone however pain is worse. She was directed by Dr Lemus to come to the emergency room for imaging. She denies any fevers or bowel or bladder incontinence. No previous back injuries or surgeries. She states that the pain is going down her left leg and it feels weak. MD Complaint: back pain -: days(s) (5) Similar Symptoms Previously: No Place: other (outside) Severity scale (1-10): 10 Quality: other (shooting) Consistency: constant Improves With: immobilization Worsens With: movement, walking Context: while lifting (and pushing a boat Thursday) Associated Symptoms: difficulty walking - Related Data Home Medications Medication Instructions Recorded Confirmed [id number] 1 tab PO Q6H PRN 01/09/19 01/31/19 [Excedrin] Pantoprazole [Protonix] 40 mg PO DAILY 01/12/19 01/31/19 Metoprolol Tartrate 12.5 mg PO BID 01/25/19 01/31/19 Previous Rx's Medication Instructions Recorded Aspirin 325 mg PO DAILY #30 tab 01/10/19 lisinopriL [Zestril] 20 mg PO DAILY tab 01/10/19 Acetaminophen Tab [Tylenol] 650 mg PO Q4HR PRN tab 02/02/19 Ibuprofen [Motrin] 400 mg PO Q6HR PRN #20 tab 02/02/19 dexAMETHasone [Decadron] 6 mg PO DAILY #5 tablet 12/19/21 Lidocaine 5% Patch [Lidoderm] 1 patch TOPICAL DAILY 20 Days #20 06/20/22 patch Allergies Allergy/AdvReac Type Severity Reaction Status Date / Time Iodinated Contrast Media Allergy Rash/Hives Verified 06/20/22 14:55 [Iodinated Contrast- Oral and IV Dye] Review of Systems ROS Statement: Those systems with pertinent positive or pertinent negative responses have been documented in the HPI. ROS Other: All systems not noted in ROS Statement are negative. Past Medical History Past Medical History: Chest Pain / Angina, Hypertension Additional Past Medical History / Comment(s): diff swallowing at times-watches what she eats and chews her pills, migraines, "chest pressure", History of Any Multi-Drug Resistant Organisms: MRSA Date of last positivie culture/infection: 2016 MDRO Source:: face Past Surgical History: Heart Catheterization, Hernia Repair, Uterine Ablation Additional Past Surgical History / Comment(s): EGD with dilations, bilateral inguinal hernia repairs, colonoscopy. Past Anesthesia/Blood Transfusion Reactions: No Reported Reaction Additional Past Anesthesia/Blood Transfusion Reaction / Comment(s): Pt has claustrophobia. Past Psychological History: Depression Past Alcohol Use History: Occasional Past Drug Use History: None Reported - Past Family History Father Family Medical History: AFIB Mother Family Medical History: AFIB General Exam Limitations: no limitations General appearance: alert, in no apparent distress Head exam: Present: atraumatic Eye exam: Present: normal appearance. Absent: scleral icterus, conjunctival injection Neck exam: Present: full ROM. Absent: tenderness, meningismus Respiratory exam: Absent: respiratory distress, accessory muscle use Cardiovascular Exam: Present: regular rate GI/Abdominal exam: Present: soft Extremities exam: Present: normal capillary refill. Absent: pedal edema, calf tenderness Back exam: Present: tenderness, paraspinal tenderness, vertebral tenderness (Lumbar sacral spine). Absent: CVA tenderness (R), CVA tenderness (L) Expanded Back exam: Absent: saddle anesthesia Back exam: Positive Straight Leg Raise: Left, Negative Straight Leg Raising: Right Neurological exam: Present: alert, oriented X3 Psychiatric exam: Present: normal affect, normal mood Skin exam: Present: warm, dry, intact, normal color. Absent: cyanosis, diaphoretic Course Vital Signs 06/20/22 14:53 Temperature 97.9 F Pulse Rate 88 Respiratory 20 Rate Blood Pressure 170/85 O2 Sat by Pulse 95 Oximetry Medical Decision Making - Medical Decision Making X-ray shows degenerative disc disease with facet arthropathy no acute fracture or subluxation. Loss of disc height at L5 through S1 with associated spondylosis which is consistent with where the pain is located. No red flag symptoms, no bowel or bladder incontinence, no fevers, no recent history of cancer and no recent surgeries. She was given Lidoderm patches for additional pain relief as she is already on [place] and prednisone. She was referred to Dr. Lemus for continuation of care. Strict return parameters were discussed with the patient. She is agreeable to this plan of care. Disposition Clinical Impression: Back pain, Spondylosis Disposition: HOME SELF-CARE Condition: Good Instructions (If sedation given, give patient instructions): Acute Low Back Pain (ED) Additional Instructions: Back pain sometimes take several weeks to recover. Continue to take the [place] and prednisone as prescribed and use the Lidoderm patches for pain relief. Follow up with orthopedics next week. Return to the emergency room with any new or concerning symptoms including fever, incontinence of bowel or bladder inability to ambulate. Prescriptions: Lidocaine 5% Patch [Lidoderm] 1 patch TOPICAL DAILY 20 Days #20 patch Is patient prescribed a controlled substance at d/c from ED?: No Referrals: Hank Lemus MD [Primary Care Provider] - 1-2 days Time of Disposition: 16:55
[2022-06-20] MEDS ORDERED: LIDOCAINE 5% PATCH TOPICAL SCH (15:30)
[2022-06-20] MEDS ORDERED: ORPHENADRINE 30 MG/ML 2 ML VIAL IM STA (15:31)
--- NOTE | 2022-06-20 15:58 | XR ---
Lumbar spine HISTORY: Trauma and pain 3 views of lumbar spine There is a slight spinal curvature. Lumbar vertebral bodies show preserved height, alignment, and bon e mineralization. Loss of disc height is present L5-S1 with associated spondylosis. Sclerosis present in the posterior elements. IMPRESSION: Degenerative disc disease, facet arthropathy. No acute fracture or subluxation.
[2022-06-20 17:39] VITALS: BP 165/74; PULSE 84
== END 2022-06-20 17:40 | disposition home or self-care (01) ==
LOC: EC 14:42
DX: M47.816 Spondylosis without myelopathy or radiculopathy, lumbar region (principal); I10 Essential (primary) hypertension; Z91.041 Radiographic dye allergy status; Z79.899 Other long term (current) drug therapy
CPT/HCPCS: 72100; 99283; 96372; J2360

== ENCOUNTER 2023-07-15 11:09 | Day surgery (SDC) | payer BC ==
[2023-07-14 10:37] VITALS: BMI 18.8
[~2023-07-15 11:09] MED LIST changes: -ALPRAZolam 0.25 MG TAB PO PRN; -ALPRAZolam 0.5 MG TAB PO PRN; -ASPIRIN 325 MG TAB PO STA; -ATORVASTATIN 80 MG TAB PO STA; +LACTATED RINGERS 1,000 ML IV SCH; -NITROGLYCERIN SL TABS 0.4 MG TAB SUBLINGUAL PRN; -SODIUM CHLORIDE 0.9% 1,000 ML in EMPTY BAG 1 BAG IV ONE
[2023-07-15 11:54] VITALS: TEMP 96.9
[2023-07-15] MEDS ORDERED: PROPOFOL 10 MG/ML 20 ML VIAL IV ONE (12:39)
[2023-07-15] MEDS ORDERED: LIDOCAINE 2% INJ 20 MG/ML (2 ML VIAL) ONE (12:39)
--- NOTE | 2023-07-15 12:53 | P.PCN ---
Date of Procedure: 07/15/23 Procedure(s) Performed: BRIEF HISTORY: Patient is a 53-year-old pleasant white female scheduled for an elective colonoscopy as a part of evaluation of lower abdominal pain and change in bowel habits for the last 9 months duration. PROCEDURE PERFORMED: Colonoscopy with biopsy. PREOPERATIVE DIAGNOSIS: Lower abdominal pain and change in bowel habits. IV sedation per Anesthesia. PROCEDURE: After informed consent was obtained, the patient, was brought into the endoscopy unit. IV sedation was administered by Anesthesia under continuous monitoring. Digital rectal examination was normal. Initially the Olympus CF-160 flexible video colonoscope was then inserted in the rectum, gradually advanced into the cecum without any difficulty. Careful examination was performed as the scope was gradually being withdrawn. Ileocecal valve and the appendiceal orifice were visualized and appeared normal. Prep was excellent. Mucosa of the cecum, ascending colon, transverse colon, descending colon, appeared normal. There was mild patchy erythema noted in the distal sigmoid colon possible rectum extending from 10-30 cm from the anal verge and biopsies were done from this area. The distal rectum appeared normal. Retroflexion was performed in the rectum and no lesions were seen. The patient tolerated the procedure well. IMPRESSION: Mild patchy erythema noted in the proximal rectum and distal sigmoid colon from 10-30 cm from the anal verge status post biopsies Rest of the colon appeared normal RECOMMENDATIONS: Findings of this examination were discussed with the patient as well as a family. She was advised to follow with the biopsy results and have a repeat screening colonoscopy in 10 years. be seen in office in 2 weeks
[2023-07-15 13:13] VITALS: BP 142/61; PULSE 71; RESP 17
== END 2023-07-15 13:54 | disposition home or self-care (01) ==
LOC: ORWHC2ENDO 11:09
PROVIDERS: ATTEND Internal Medicine Gastroenterology
DX: R19.4 Change in bowel habit (principal); F32.A Depression, unspecified; Z91.041 Radiographic dye allergy status
CPT/HCPCS: 81025; 88305; 45380; J2704; J2001